=== PATIENT | female | born 1950 | race Caucasian/White ===

== ENCOUNTER 2017-07-27 07:38 | Emergency (ER) | payer OTHER, BC ==
[~2017-07-27 07:38] MED LIST: DICL100G15 TOP; GUAI120015 PO; LIDO700A32 TOP; ONDA4TAB12 PO; SCOP TOP; TRIA80OI TOP
[2017-07-27] MEDS ORDERED: triamcinolone acetonide 40mg/ml inj IM ONE (07:50)
[2017-07-27] MEDS ORDERED: dexamethasone 4mg/ml inj IM ONE (07:50)
[2017-07-27 08:20] VITALS: BP 130/89
== END 2017-07-27 08:28 | disposition home or self-care (01) ==
LOC: ER 07:38
DX: L23.7 Allergic contact dermatitis due to plants, except food (principal); I10 Essential (primary) hypertension; G89.29 Other chronic pain; Z86.73 Personal history of transient ischemic attack (TIA), and cerebral infarction without residual deficits; Z98.890 Other specified postprocedural states; Z88.5 Allergy status to narcotic agent
CPT/HCPCS: 96372; 99284; J1100; J3301

== ENCOUNTER 2017-09-23 14:34 | Emergency (ER) | payer BC, OTHER ==
[~2017-09-23] VITALS: Ht 162.6 cm; Wt 85.9 kg
[2017-09-23 14:40] VITALS: BP 134/71
== END 2017-09-23 15:02 | disposition home or self-care (01) ==
LOC: ER 14:34
DX: S40.022A Contusion of left upper arm, initial encounter (principal); S40.021A Contusion of right upper arm, initial encounter; I10 Essential (primary) hypertension; G89.29 Other chronic pain; Z86.73 Personal history of transient ischemic attack (TIA), and cerebral infarction without residual deficits; Z98.890 Other specified postprocedural states; Z79.899 Other long term (current) drug therapy; Z88.5 Allergy status to narcotic agent; Y08.89XA Assault by other specified means, initial encounter; Y93.89 Activity, other specified; Y92.89 Other specified places as the place of occurrence of the external cause; Y99.8 Other external cause status
CPT/HCPCS: 99285

== ENCOUNTER 2018-01-04 09:22 | Outpatient (CLI) | payer OTHER ==
[2018-01-04 10:49] LABS: CHOL/HDL RATIO 2.2 (0.00-4.99); CHOLESTEROL 108 MG/DL (0-200); HDL CHOLESTEROL 50 MG/DL (35-60); LDL CHOLESTEROL 50 MG/DL (50-100); TRIGLYCERIDES 51 MG/DL (20-135)
== END 2018-01-04 23:59 | disposition home or self-care (01) ==
LOC: LAB 09:22
PROVIDERS: ATTEND Family Medicine
DX: E78.5 Hyperlipidemia, unspecified (principal); I10 Essential (primary) hypertension
CPT/HCPCS: 36415; 80061

== ENCOUNTER 2018-03-09 10:30 | Outpatient (CLI) | payer OTHER, BC | END 2018-03-09 23:59 | disposition home or self-care (01) | LOC: RAD 10:30 | PROVIDERS: ATTEND Anesthesiology | DX: M50.30 Other cervical disc degeneration, unspecified cervical region (principal); M48.02 Spinal stenosis, cervical region; M25.78 Osteophyte, vertebrae; I10 Essential (primary) hypertension | CPT/HCPCS: 72141 ==

== ENCOUNTER 2018-07-19 15:01 | Emergency (ER) | payer OTHER, MEDICARE, BC ==
[~2018-07-19] VITALS: Ht 162.6 cm; Wt 85.0 kg
[2018-07-19] MEDS ORDERED: diazepam 5mg tablet PO ONE (15:20)
[2018-07-19 15:28] LABS: BASOPHILS % (AUTO) 0.4 % (0-1); EOSINOPHILS # (AUTO) 0.2 X10'3 (0-0.9); EOSINOPHILS % (AUTO) 2.4 % (0-6); HEMATOCRIT 37.8 % (35.0-45.0); HEMOGLOBIN 13.2 g/dl (12.0-16.0); LYMPHOCYTES % (AUTO) 22.1 % (21-51); MEAN CORPUSCULAR VOLUME 91.3 FL (78-98); MEAN PLATELET VOLUME 8.6 FL (7.4-10.4); MONOCYTES # (AUTO) 0.5 X10'3 (0-0.9); MONOCYTES % (AUTO) 5.1 % (2-12); NEUTROPHILS # (AUTO) 6.4 X10'3 (1.8-7.7); PLATELET COUNT 218 X10'3 (140-440); RED BLOOD COUNT 4.14 X10'6 (4.20-5.60); RED CELL DISTRIBUTION WIDTH 12.8 % (11.5-14.5); WHITE BLOOD COUNT 9.2 X10'3 (4.5-11.0)
[2018-07-19 15:41] LABS: ALANINE AMINOTRANSFERASE 28 U/L (12-78); ALBUMIN/GLOBULIN RATIO 1.3 (1.1-1.5); ALKALINE PHOSPHATASE 108 IU/L (46-116); ANION GAP 10 (8-16); ASPARTATE AMINO TRANSFERASE 21 U/L (10-37); BILIRUBIN,TOTAL 0.3 MG/DL (0.1-1.0); BLOOD UREA NITROGEN 16 MG/DL (7-18); BUN/CREATININE RATIO 20.5 (6.6-38.0); CALCIUM 9.2 MG/DL (8.5-10.1); CHLORIDE 105 MMOL/L (99-107); CREATININE 0.78 MG/DL (0.40-0.90); GLUCOSE 117 MG/DL (70-104); MAGNESIUM 1.8 MG/DL (1.5-2.4); POTASSIUM 3.5 MMOL/L (3.5-5.1); SODIUM 143 MMOL/L (135-145); TOTAL CARBON DIOXIDE 27.6 MMOL/L (24-32); TOTAL PROTEIN 7.2 G/DL (6.4-8.2); eGFR 74 ML/MIN
--- NOTE | 2018-07-19 15:49 | NUR ---
While in room with patient still, she began having left sided headache. States she has a history of migraines for which she takes excedrine migraine. States she feels "a little foggy, like Im not thinking right". Dr Champion and Dr Yancey in room to discuss plan of care. Pt being taken to mri after being given 10 mg Valium po for claustrophobia.
--- NOTE | 2018-07-19 16:00 | NUR ---
PATIENT TO MRI
--- NOTE | 2018-07-19 16:37 | NUR ---
Patient back from MRI.
[2018-07-19] MEDS ORDERED: ketorolac trometh inj. 60 MG/2 ML VIAL IM ONE (17:10)
[2018-07-19 17:55] VITALS: BP 164/85
== END 2018-07-19 17:56 | disposition home or self-care (01) ==
LOC: ER 15:01
DX: G43.909 Migraine, unspecified, not intractable, without status migrainosus (principal); I10 Essential (primary) hypertension; E78.00 Pure hypercholesterolemia, unspecified; G89.29 Other chronic pain; M54.9 Dorsalgia, unspecified; Z86.73 Personal history of transient ischemic attack (TIA), and cerebral infarction without residual deficits; Z88.6 Allergy status to analgesic agent
CPT/HCPCS: 36415; 70544; 70551; 71045; 80053; 83735; 85025; 93005; 96372; 99284; J1885

== ENCOUNTER 2018-11-30 12:41 | Emergency (ER) | payer OTHER, MEDICARE, BC ==
[~2018-11-30] VITALS: Ht 162.6 cm; Wt 83.6 kg
[2018-11-30 14:32] VITALS: BP 159/93
== END 2018-11-30 14:33 | disposition home or self-care (01) ==
LOC: ER 12:41
DX: S80.01XA Contusion of right knee, initial encounter (principal); M79.671 Pain in right foot; E78.00 Pure hypercholesterolemia, unspecified; I10 Essential (primary) hypertension; G89.29 Other chronic pain; Z86.73 Personal history of transient ischemic attack (TIA), and cerebral infarction without residual deficits; Z98.890 Other specified postprocedural states; Z88.5 Allergy status to narcotic agent; Z79.899 Other long term (current) drug therapy; W01.0XXA Fall on same level from slipping, tripping and stumbling without subsequent striking against object, initial encounter; Y93.89 Activity, other specified; Y92.89 Other specified places as the place of occurrence of the external cause; Y99.8 Other external cause status
CPT/HCPCS: 73564; 73660; 99283

== ENCOUNTER 2019-09-13 07:04 | Emergency (ER) | payer OTHER, BC, MEDICARE ==
[~2019-09-13] VITALS: Ht 162.6 cm; Wt 84.5 kg
[2019-09-13 07:50] LABS: BASOPHILS % (AUTO) 0.5 % (0-1); EOSINOPHILS # (AUTO) 0.3 X10'3 (0-0.9); EOSINOPHILS % (AUTO) 3.5 % (0-6); HEMOGLOBIN 12.4 g/dl (12.0-16.0); LYMPHOCYTES # (AUTO) 2.1 X10'3 (1.1-4.8); LYMPHOCYTES % (AUTO) 25.8 % (21-51); MEAN CORPUSCULAR HEMOGLOBIN 30.6 PG (27.0-31.0); MEAN CORPUSCULAR HGB CONC 33.5 g/dL (33.0-36.5); MEAN CORPUSCULAR VOLUME 91.2 FL (78-98); MEAN PLATELET VOLUME 8.6 FL (7.4-10.4); MONOCYTES # (AUTO) 0.5 X10'3 (0-0.9); NEUTROPHILS # (AUTO) 5.1 X10'3 (1.8-7.7); NEUTROPHILS % (AUTO) 64.2 % (42-75); PLATELET COUNT 201 X10'3 (140-440); RED BLOOD COUNT 4.06 X10'6 (4.20-5.60); RED CELL DISTRIBUTION WIDTH 13.3 % (11.5-14.5)
[2019-09-13 08:04] LABS: D-DIMER 1.22 MG/L FEU (0-0.50); PARTIAL THROMBOPLASTIN TIME 27 SECONDS (22-32)
[2019-09-13 08:05] LABS: ALANINE AMINOTRANSFERASE 23 U/L (12-78); ALBUMIN/GLOBULIN RATIO 1.3 (1.1-1.5); ALKALINE PHOSPHATASE 101 IU/L (46-116); ANION GAP 7 (8-16); ASPARTATE AMINO TRANSFERASE 20 U/L (10-37); BILIRUBIN,TOTAL 0.5 MG/DL (0.1-1.0); BLOOD UREA NITROGEN 16 MG/DL (7-18); BUN/CREATININE RATIO 21.9 (6.6-38.0); CALCIUM 8.9 MG/DL (8.5-10.1); CHLORIDE 107 MMOL/L (99-107); CREATININE 0.73 MG/DL (0.40-0.90); GLUCOSE 117 MG/DL (70-104); POTASSIUM 3.5 MMOL/L (3.5-5.1); SODIUM 143 MMOL/L (135-145); TOTAL CARBON DIOXIDE 29.3 MMOL/L (24-32); TOTAL PROTEIN 7.2 G/DL (6.4-8.2); eGFR 80 ML/MIN
--- NOTE | 2019-09-13 08:10 | NUR ---
VASCULAR AT BEDSIDE
[2019-09-13 09:54] VITALS: BP 172/77
== END 2019-09-13 09:58 | disposition home or self-care (01) ==
LOC: ER 07:05 → EEVIPCON 07:05 → ER 09:58
DX: M25.562 Pain in left knee (principal); E78.00 Pure hypercholesterolemia, unspecified; I10 Essential (primary) hypertension; G89.29 Other chronic pain; R79.1 Abnormal coagulation profile; Z98.890 Other specified postprocedural states; Z86.73 Personal history of transient ischemic attack (TIA), and cerebral infarction without residual deficits; Z88.5 Allergy status to narcotic agent; Z79.899 Other long term (current) drug therapy
CPT/HCPCS: 36415; 73564; 80053; 85025; 85379; 85610; 85730; 93971; 99285

== ENCOUNTER 2019-10-27 12:57 | Outpatient (CLI) | payer OTHER, BC, MEDICARE | END 2019-10-27 23:59 | disposition home or self-care (01) | LOC: RAD 12:57 | PROVIDERS: ATTEND Family Medicine | DX: S83.242A Other tear of medial meniscus, current injury, left knee, initial encounter (principal); S83.282A Other tear of lateral meniscus, current injury, left knee, initial encounter; S83.512A Sprain of anterior cruciate ligament of left knee, initial encounter; M25.462 Effusion, left knee; M71.22 Synovial cyst of popliteal space [Baker], left knee; M17.12 Unilateral primary osteoarthritis, left knee; R60.9 Edema, unspecified; X58.XXXA Exposure to other specified factors, initial encounter; Y93.89 Activity, other specified; Y92.89 Other specified places as the place of occurrence of the external cause; Y99.8 Other external cause status | CPT/HCPCS: 73721 ==

== ENCOUNTER 2020-04-27 07:48 | Day surgery (SDC) | payer BC, MEDICARE ==
[2020-04-20 14:42] LABS: BASOPHILS % (AUTO) 0.3 % (0-1); EOSINOPHILS # (AUTO) 0.2 X10'3 (0-0.9); EOSINOPHILS % (AUTO) 2.7 % (0-6); LYMPHOCYTES # (AUTO) 2.4 X10'3 (1.1-4.8); LYMPHOCYTES % (AUTO) 25.9 % (21-51); MEAN CORPUSCULAR HEMOGLOBIN 31.5 PG (27.0-31.0); MEAN CORPUSCULAR HGB CONC 34.4 g/dL (33.0-36.5); MEAN CORPUSCULAR VOLUME 91.6 FL (78-98); MONOCYTES # (AUTO) 0.6 X10'3 (0-0.9); MONOCYTES % (AUTO) 6.3 % (2-12); NEUTROPHILS # (AUTO) 5.9 X10'3 (1.8-7.7); NEUTROPHILS % (AUTO) 64.8 % (42-75); PRE OP HEMATOCRIT 38.4 % (35.0-45.0); PRE OP HEMOGLOBIN 13.2 g/dL (12.0-16.0); PRE OP PLATELET COUNT 213 X10'3 (140-440); RED BLOOD COUNT 4.19 X10'6 (4.20-5.60); RED CELL DISTRIBUTION WIDTH 13.1 % (11.5-14.5)
[2020-04-20 14:59] LABS: ALBUMIN 4.1 G/DL (3.4-5.0); ALBUMIN/GLOBULIN RATIO 1.2 (1.1-1.5); ALKALINE PHOSPHATASE 117 IU/L (46-116); BLOOD UREA NITROGEN 16 MG/DL (7-18); BUN/CREATININE RATIO 22.5 (6.6-38.0); CALCIUM 9.1 MG/DL (8.5-10.1); CHLORIDE 106 MMOL/L (99-107); CREATININE 0.71 MG/DL (0.40-0.90); PRE OP ALT 23 U/L (30-65); PRE OP ANION GAP 8 (8-16); PRE OP AST 15 U/L (10-37); PRE OP BILIRUB, TOTAL 0.4 MG/DL (0.0-1.0); PRE OP GLUCOSE 118 MG/DL (70-104); PRE OP POTASSIUM 3.7 MMOL/L (3.4-5.1); PRE OP SODIUM 144 MMOL/L (135-145); TOTAL CARBON DIOXIDE 29.8 MMOL/L (24-32); TOTAL PROTEIN 7.6 G/DL (6.4-8.2); eGFR 82 ML/MIN
[2020-04-27] VITALS (10 sets, daily range): BP systolic 152–199; BP diastolic 73–101
[~2020-04-27] VITALS: Ht 162.6 cm; Wt 83.2 kg
[~2020-04-27 07:48] MED LIST changes: +ASPI81TA52 PO; +ATOR40TA PO; +BUPIVAcaine 0.5% inj/PF 60 ML ONE; +CITA20TA19 PO; -DICL100G15 TOP; -GUAI120015 PO; +HYDR-4353 PO; +HYDR12.55 PO; -LIDO700A32 TOP; +LIDO700A47 TOP; +LIDOcaine 1% 30ml preserv. free vial ONE; +LIDOcaine 1% w/epiNEPHrine 1:200,000 30ml vial ONE; -ONDA4TAB12 PO; -SCOP TOP; +TERA1CAP4 PO; +TRAZ-256 PO; -TRIA80OI TOP; +ceFAZolin 2gm in dextrose, iso 50 ML IV ONE; +famotidine 20mg tablet PO ONE; +ringers solution, lacted 1,000 ML IV SCH
[2020-04-27] MEDS ORDERED: BUPIVAcaine 0.5% inj/PF 30 ML ONE (09:02)
[2020-04-27] MEDS ORDERED: sevoflurane 250ml liquid IH ONE (09:26)
[2020-04-27] MEDS ORDERED: midazolam 2 mg/2 ml injection ONE (09:29)
[2020-04-27] MEDS ORDERED: fentaNYL/PF 50MCG/1 ML 2ML syringe ONE (09:29)
[2020-04-27] MEDS ORDERED: ondansetron/PF 4mg/2ml inj ONE (09:42)
[2020-04-27] MEDS ORDERED: LIDOcaine 2% (20mg/ml) 5ml vial ONE (09:42)
[2020-04-27] MEDS ORDERED: propofol inj 20 ML IV ONE (09:42)
[2020-04-27] MEDS ORDERED: dexamethasone sod phosphate 4mg/ml inj. ONE (09:42)
[2020-04-27] MEDS ORDERED: proCHLORperazine 10 MG/2 ml inj IV PRN (10:05)
[2020-04-27] MEDS ORDERED: meperidine/PF 25mg/ml syringe IV PRN (10:05)
[2020-04-27] MEDS ORDERED: ondansetron/PF 4mg/2ml inj IV PRN (10:05)
[2020-04-27] MEDS ORDERED: HYDROmorphone/PF 0.2 MG/ML SYRINGE IV PRN ×2 (10:05)
[2020-04-27] MEDS ORDERED: ringers solution, lacted 1,000 ML IV SCH (10:05)
[2020-04-27] MEDS ORDERED: fentaNYL/PF 50MCG/1 ML 2ML syringe IV PRN ×2 (10:05)
[2020-04-27] MEDS ORDERED: acetaminophen 1,000mg/100ml IV 100 ML IV PRN (10:05)
--- NOTE | 2020-04-27 10:38 | NUR ---
FROM OR ON [facility] WITH DR. ATKINSON AT SIDE. NO RESP DISTRESS. VS-BP 199/95 MED IMMEDIATELY WITH TRANDATE. NO PAIN, IV PATENT TO RT WRIST. KNEE DRESSING IS CHRISTI WRAP OVER GAUZE AND IS CDI. PEDAL PULSE IS PALPABLE AND STRONG. TOES MOVE WELL.
[2020-04-27] MEDS ORDERED: hydrALAZINE 20mg/ml inj. IV PRN (10:40)
[2020-04-27] MEDS ORDERED: labetalol 20mg/4ml (5mg/ml) syringe IV PRN (10:40)
--- NOTE | 2020-04-27 11:08 | NUR ---
EXCELLENT RESULTS FROM LABETALOL. O2 OFF NOW. ENC CDB. NO PAIN, EXCELLENT PULSE. DRESSING CONT CDI.
--- NOTE | 2020-04-27 12:08 | NUR ---
IV OUT. VOIDED IN BR. DOES EXCELLENT WITH THE WALKER. DSG CONT CDI. NO PAIN.
--- NOTE | 2020-04-27 12:13 | NUR ---
DC TO HOME WITH DRIVING. ALL QUESTIONS ANSWERED STATES UNDERSTANDS. KNEE DSG CDI, PULSE PALPABLE. WHEELED TO LOBBY AND PLACED INTO CAR WITHOUT INCIDENT.
== END 2020-04-27 12:13 | disposition home or self-care (01) ==
LOC: PAS 07:48
PROVIDERS: ATTEND Orthopaedic Surgery
DX: S83.232A Complex tear of medial meniscus, current injury, left knee, initial encounter (principal); S83.282A Other tear of lateral meniscus, current injury, left knee, initial encounter; M94.262 Chondromalacia, left knee; Z20.828 Contact with and (suspected) exposure to other viral communicable diseases; I10 Essential (primary) hypertension; G43.909 Migraine, unspecified, not intractable, without status migrainosus; M17.12 Unilateral primary osteoarthritis, left knee; Z86.73 Personal history of transient ischemic attack (TIA), and cerebral infarction without residual deficits; Z88.5 Allergy status to narcotic agent; Z98.890 Other specified postprocedural states; Z96.643 Presence of artificial hip joint, bilateral; Z96.653 Presence of artificial knee joint, bilateral; Z79.899 Other long term (current) drug therapy; X58.XXXA Exposure to other specified factors, initial encounter; Y93.89 Activity, other specified; Y92.89 Other specified places as the place of occurrence of the external cause; Y99.8 Other external cause status
CPT/HCPCS: 29880; 36415; 80053; 82948; 85025; 87635; J1100; J2001; J2250; J2405; J2704; J3010; A4215; A4618; A6449; J3490; J7120

== ENCOUNTER 2020-06-14 12:34 | Outpatient (CLI) | payer BC, MEDICARE ==
[~2020-06-14 12:34] MED LIST changes: -BUPIVAcaine 0.5% inj/PF 60 ML ONE; -LIDOcaine 1% 30ml preserv. free vial ONE; -LIDOcaine 1% w/epiNEPHrine 1:200,000 30ml vial ONE; -ceFAZolin 2gm in dextrose, iso 50 ML IV ONE; -famotidine 20mg tablet PO ONE; -ringers solution, lacted 1,000 ML IV SCH
== END 2020-06-14 23:59 | disposition home or self-care (01) ==
LOC: RAD 12:34
PROVIDERS: ATTEND Family Medicine
DX: R05 Cough (principal); J98.4 Other disorders of lung; M47.819 Spondylosis without myelopathy or radiculopathy, site unspecified
CPT/HCPCS: 71046

== ENCOUNTER 2020-06-27 15:44 | Outpatient (CLI) | payer BC, MEDICARE | END 2020-06-27 23:59 | disposition home or self-care (01) | LOC: RT 15:44 | PROVIDERS: ATTEND Family Medicine | DX: J98.4 Other disorders of lung (principal) | CPT/HCPCS: 94010 ==

== ENCOUNTER 2020-12-21 08:15 | Emergency (ER) | payer BC, MEDICARE ==
[~2020-12-21] VITALS: Ht 162.6 cm; Wt 81.0 kg
[2020-12-21 08:17] VITALS: BP 181/78
[2020-12-21] MEDS ORDERED: GENT5DRO4 LEFTEYE (08:43)
[2020-12-21] MEDS ORDERED: naphazoline/pheniramine eye 1 DROP BOTTLE EACHEYE PRN (08:45)
== END 2020-12-21 09:00 | disposition home or self-care (01) ==
LOC: ER 08:16 → EEVIPCON 08:16 → ER 09:00
DX: H10.32 Unspecified acute conjunctivitis, left eye (principal); Z88.5 Allergy status to narcotic agent; Z79.899 Other long term (current) drug therapy
CPT/HCPCS: 99283

== ENCOUNTER 2021-01-09 11:27 | Emergency (ER) | payer BC, MEDICARE ==
[~2021-01-09] VITALS: Ht 162.6 cm; Wt 80.9 kg
[~2021-01-09 11:27] MED LIST changes: +GENT5DRO4 LEFTEYE
[2021-01-09] MEDS ORDERED: sucralfate 1gm/10ml UD suspension PO STA (11:56)
[2021-01-09] MEDS ORDERED: LIDOcaine Viscous 15ml cup MM ONE (12:00)
[2021-01-09] MEDS ORDERED: normal saline 1000ML IV soln IVB ONE (12:00)
[2021-01-09] MEDS ORDERED: famotidine/PF 10 mg/ml inj IV ONE (12:00)
[2021-01-09] MEDS ORDERED: mag hydrox/Alum hydrox/simeth 30ml oral suspension PO ONE (12:00)
[2021-01-09] MEDS ORDERED: sucralfate 1 gm tablet PO STA (12:15)
[2021-01-09 12:33] LABS: BASOPHILS % (AUTO) 0.3 % (0-1); EOSINOPHILS # (AUTO) 0.1 X10'3 (0-0.9); EOSINOPHILS % (AUTO) 0.6 % (0-6); HEMATOCRIT 38.8 % (35.0-45.0); HEMOGLOBIN 12.9 g/dl (12.0-16.0); LYMPHOCYTES # (AUTO) 2.1 X10'3 (1.1-4.8); LYMPHOCYTES % (AUTO) 13.7 % (21-51); MEAN CORPUSCULAR HEMOGLOBIN 31.1 PG (27.0-31.0); MEAN CORPUSCULAR HGB CONC 33.3 g/dL (33.0-36.5); MEAN CORPUSCULAR VOLUME 93.4 FL (78-98); MEAN PLATELET VOLUME 8.6 FL (7.4-10.4); MONOCYTES # (AUTO) 0.7 X10'3 (0-0.9); MONOCYTES % (AUTO) 4.7 % (2-12); NEUTROPHILS # (AUTO) 12.3 X10'3 (1.8-7.7); NEUTROPHILS % (AUTO) 80.7 % (42-75); PLATELET COUNT 211 X10'3 (140-440); RED BLOOD COUNT 4.16 X10'6 (4.20-5.60); RED CELL DISTRIBUTION WIDTH 13.7 % (11.5-14.5); WHITE BLOOD COUNT 15.3 X10'3 (4.5-11.0)
[2021-01-09 12:58] LABS: ALANINE AMINOTRANSFERASE 31 U/L (12-78); ALBUMIN 3.8 G/DL (3.4-5.0); ALBUMIN/GLOBULIN RATIO 1.3 (1.1-1.5); ALKALINE PHOSPHATASE 78 IU/L (46-116); ANION GAP 8 (8-16); ASPARTATE AMINO TRANSFERASE 13 U/L (10-37); BILIRUBIN,TOTAL 0.8 MG/DL (0.1-1.0); BLOOD UREA NITROGEN 19 MG/DL (7-18); BUN/CREATININE RATIO 21.3 (6.6-38.0); CALCIUM 8.4 MG/DL (8.5-10.1); CHLORIDE 106 MMOL/L (99-107); CREATININE 0.89 MG/DL (0.40-0.90); GLUCOSE 143 MG/DL (70-104); POTASSIUM 3.3 MMOL/L (3.5-5.1); SODIUM 143 MMOL/L (135-145); TOTAL CARBON DIOXIDE 28.8 MMOL/L (24-32); TOTAL PROTEIN 6.8 G/DL (6.4-8.2); eGFR 63 ML/MIN
[2021-01-09 13:04] LABS: LIPASE 100 U/L (73-393)
[2021-01-09 14:14] VITALS: BP 153/68
== END 2021-01-09 14:08 | disposition home or self-care (01) ==
LOC: ER 11:27 → EEVIPCON 11:27 → ER 14:08
DX: B34.9 Viral infection, unspecified (principal); Z20.822 Contact with and (suspected) exposure to COVID-19; R53.83 Other fatigue; R42 Dizziness and giddiness; R53.1 Weakness; R06.02 Shortness of breath; E78.00 Pure hypercholesterolemia, unspecified; I10 Essential (primary) hypertension; G89.29 Other chronic pain; Z86.73 Personal history of transient ischemic attack (TIA), and cerebral infarction without residual deficits; Z98.890 Other specified postprocedural states; Z88.5 Allergy status to narcotic agent; Z79.82 Long term (current) use of aspirin; Z79.899 Other long term (current) drug therapy
CPT/HCPCS: 36415; 71045; 74176; 80053; 83690; 84484; 85025; 87635; 96361; 96374; 99285; C9803; J3490; J7030

== ENCOUNTER 2021-04-15 14:12 | Outpatient (CLI) | payer BC, MEDICARE | END 2021-04-15 23:59 | disposition home or self-care (01) | LOC: VAS 14:12 | PROVIDERS: ATTEND Internal Medicine Interventional Cardiology | DX: I34.0 Nonrheumatic mitral (valve) insufficiency (principal); I65.21 Occlusion and stenosis of right carotid artery; Z86.73 Personal history of transient ischemic attack (TIA), and cerebral infarction without residual deficits | CPT/HCPCS: 93306; 93880 ==

== ENCOUNTER 2021-06-25 05:57 | Day surgery (SDC) | payer BC, MEDICARE ==
[2021-06-19 13:25] LABS: BASOPHILS % (AUTO) 0.3 % (0-1); EOSINOPHILS # (AUTO) 0.1 X10'3 (0-0.9); EOSINOPHILS % (AUTO) 1.9 % (0-6); LYMPHOCYTES % (AUTO) 25.5 % (21-51); MEAN CORPUSCULAR HGB CONC 33.9 g/dL (33.0-36.5); MEAN CORPUSCULAR VOLUME 91.3 FL (78-98); MEAN PLATELET VOLUME 9.3 FL (7.4-10.4); MONOCYTES # (AUTO) 0.5 X10'3 (0-0.9); MONOCYTES % (AUTO) 5.9 % (2-12); NEUTROPHILS # (AUTO) 5.1 X10'3 (1.8-7.7); NEUTROPHILS % (AUTO) 66.4 % (42-75); PRE OP HEMATOCRIT 37.9 % (35.0-45.0); PRE OP HEMOGLOBIN 12.8 g/dL (12.0-16.0); PRE OP PLATELET COUNT 197 X10'3 (140-440); RED BLOOD COUNT 4.15 X10'6 (4.20-5.60); RED CELL DISTRIBUTION WIDTH 13.2 % (11.5-14.5)
[2021-06-19 13:25] LABS: CLARITY,URINE CLEAR (Clear); COLOR,URINE YELLOW (Yellow); GLUCOSE, URINE NEGATIVE (Neg); KETONES,URINE NEGATIVE (Neg); LEUKOCYTE ESTERASE ,URINE NEGATIVE (Neg); NITRITES, URINE NEGATIVE (Neg); OCCULT BLOOD,URINE NEGATIVE (Neg); PROTEIN,URINE NEGATIVE (Neg); UROBILINOGEN,URINE 0.2 E.U/dL (0.2-1.0)
[2021-06-19 13:35] LABS: UA COLLECTION TYPE CLN CATCH MIDSTREAM
[2021-06-19 14:18] LABS: ALBUMIN 4.3 G/DL (3.4-5.0); ALBUMIN/GLOBULIN RATIO 1.5 (1.1-1.5); ALKALINE PHOSPHATASE 95 IU/L (46-116); BLOOD UREA NITROGEN 13 MG/DL (7-18); BUN/CREATININE RATIO 24.1 (6.6-38.0); CHLORIDE 105 MMOL/L (99-107); CREATININE 0.54 MG/DL (0.40-0.90); PRE OP ALT 23 U/L (30-65); PRE OP ANION GAP 9 (8-16); PRE OP AST 18 U/L (10-37); PRE OP BILIRUB, TOTAL 0.7 MG/DL (0.0-1.0); PRE OP GLUCOSE 90 MG/DL (70-104); PRE OP SODIUM 144 MMOL/L (135-145); TOTAL CARBON DIOXIDE 29.9 MMOL/L (24-32); TOTAL PROTEIN 7.2 G/DL (6.4-8.2); eGFR > 90 ML/MIN
[2021-06-19 14:28] LABS: PRE OP POTASSIUM 3.3 MMOL/L (3.4-5.1)
[~2021-06-25] VITALS: Ht 162.6 cm; Wt 76.6 kg
[2021-06-25] VITALS (30 sets, daily range): BP systolic 109–175; BP diastolic 59–83
[~2021-06-25 05:57] MED LIST changes: -GENT5DRO4 LEFTEYE; +VANCOMYCIN 1,500MG inj. 1,500 MG in dextrose 5% water 500ml 300 ML IV ONE; +acetaminophen 325mg tablet PO ONE; +cefazolin/dext.iso 2gm/50ml IV ONE; +celeCOXIB 100mg capsule PO ONE; +famotidine 20mg tablet PO ONE; +gabapentin 300mg capsule PO ONE; +metoclopramide 5 mg/ml inj IV ONE; +oxyCODONE SR 10mg (sust. release) tab -2 tabs (20mg) PO ONE; +tranexamic acid inj. 1,000 MG in 0.7% saline 100 ML PMX IV ONE
[2021-06-25] MEDS: ringers solution, lacted 1,000 ML IV SCH ×2 (06:40→11:59)
[2021-06-25] MEDS ORDERED: acetaminophen 325mg tablet PO PRN (06:45)
[2021-06-25] MEDS ORDERED: ondansetron/PF 4mg/2ml inj IV PRN ×2 (06:45→08:05)
[2021-06-25] MEDS ORDERED: HYDROmorphone 1 mg/ml syringe IV PRN (06:45)
[2021-06-25] MEDS ORDERED: oxyCODONE/APAP 10/325mg tablet PO PRN (06:45)
[2021-06-25] MEDS ORDERED: diphenhydrAMINE 25mg capsule PO PRN ×2 (06:45)
[2021-06-25] MEDS ORDERED: bisacodyl 10mg suppository rectal RC PRN (06:45)
[2021-06-25] MEDS ORDERED: HYDROmorphone inj. 0.5 MG/0.5 ML DISP.SYRIN IV PRN (06:45)
[2021-06-25] MEDS ORDERED: magnesium hydroxide 30ml (MOM) UD suspension PO PRN (06:45)
[2021-06-25] MEDS ORDERED: cloNIDine hcl/PF 100mcg/ml inj ONE (06:46)
[2021-06-25] MEDS ORDERED: ROPIVAcaine 0.5% (5mg/ml) 30ml vial ONE ×2 (06:46→08:11)
[2021-06-25] MEDS ORDERED: ketorolac trometh. 30mg/ml inj. ONE (06:46)
[2021-06-25] MEDS ORDERED: epiNEPHrine 1 mg/ml inj ONE (06:46)
[2021-06-25] MEDS ORDERED: vancomycin 1,000mg inj ONE (06:46)
[2021-06-25 06:56] LABS: ISTAT CREATININE 0.7 mg/dL (0.6-1.1); ISTAT HGB 12.2 g/dl (12.0-16.0); ISTAT IONIZED CALCIUM 1.21 mmol/L (1.03-1.32); ISTAT K 3.6 mmol/L (3.5-5.1); POC BUN/CREATININE RATIO 22.9 (6.6-38.0)
[2021-06-25] MEDS ORDERED: BUPIVAcaine/dex-water/PF 7.5 mg/ml 2ml ampul ONE (07:10)
[2021-06-25] MEDS ORDERED: fentaNYL/PF 50MCG/1 ML 2ML syringe ONE ×2 (07:10→07:41)
[2021-06-25] MEDS ORDERED: MIDAZolam 1 MG/ML 5ML VIAL ONE (07:10)
[2021-06-25] MEDS ORDERED: sevoflurane 250ml liquid IH ONE (07:10)
[2021-06-25] MEDS ORDERED: meperidine/PF 25mg/ml syringe IV PRN ×2 (08:05)
[2021-06-25] MEDS ORDERED: ringers solution, lacted 1,000 ML IV SCH (08:05)
[2021-06-25] MEDS ORDERED: HYDROmorphone/PF 0.2 MG/ML SYRINGE IV PRN ×2 (08:05)
[2021-06-25] MEDS ORDERED: ROPIVAcaine 0.2% (10 MG/5 ML) BOLUS INJECTION ADDCANAL PRN (08:05)
[2021-06-25] MEDS ORDERED: propofol inj 20 ML IV ONE (08:12)
[2021-06-25] MEDS ORDERED: LIDOcaine 1%/PF 5ML 10 MG/ML VIAL ONE (08:12)
[2021-06-25] MEDS ORDERED: diphenhydrAMINE 50 mg/ml inj ONE (08:12)
[2021-06-25] MEDS ORDERED: dexamethasone sod phosphate 4mg/ml inj. ONE (08:12)
[2021-06-25] MEDS ORDERED: ondansetron/PF 4mg/2ml inj ONE (08:12)
[2021-06-25] MEDS ORDERED: ROPIVAcaine 0.5% (5mg/ml) 30ml vial IJ ONE (08:18)
[2021-06-25] MEDS ORDERED: epiNEPHrine 1 mg/ml inj IM ONE (08:20)
[2021-06-25] MEDS ORDERED: ketorolac trometh. 30mg/ml inj. IM ONE (08:21)
[2021-06-25] MEDS ORDERED: cloNIDine hcl/PF 100mcg/ml inj IJ ONE (08:21)
[2021-06-25] MEDS ORDERED: ketamine 50mg/5ml syringe ONE (08:22)
--- NOTE | 2021-06-25 08:50 | NUR ---
Received from OR via BED, accompanied by Anesthesiologist DR FERNANDO and report given by Anesthesiologist AND STOCKKEEPER. PT VERY DROWSY, NO S/S OF DISTERSS/DISCOMFORT. LEFT KNEE W/LEG WRAP, PORTIA DRAIN, DRSG CDI, POWDER PACK AND ADB CATHETER INTACT.
--- NOTE | 2021-06-25 10:28 | NUR ---
received report from GAIL Mejia. waiting for room to be cleaned and patient arrival.
[2021-06-25] MEDS: ROPIVAcaine 0.2%/PF PUMP/bolus 545 ML ADDCANAL SCH (10:46)
--- NOTE | 2021-06-25 11:50 | NUR ---
Report called to receiving nurse. Transferred via [] Belongings []. Special Issues communicated to receiving nurse.
--- NOTE | 2021-06-25 11:50 | NUR ---
PT C/O LEFT KNEE PAIN, 25 MG DEMEROL GIVEN. Report called to receiving nurse. Transferred via BED BY NAVEEN JUNGs, RECEIVING RN CALLED AND NOTIFIED OF PTS ARRIVAL. Special Issues communicated to receiving nurse. YES. Addendum: 06/25/21 at 1157 by Jackie Pantoja RN Amended: Links added.
--- NOTE | 2021-06-25 11:51 | NUR ---
Patient arrived to floor. VSS. patient very sleepy but arousable. visitor at bedside. no complaints at this time.
[2021-06-25] MEDS: potassium cl 20mEq in 1/2 NS 1,000 ML IV SCH ×3 (11:59→19:17)
[2021-06-25] MEDS ORDERED: tranexamic acid 1gm/0.7% sal. 100 ML IV ONE (12:00)
[2021-06-25] MEDS: multivitamins, therapeutics tablet PO SCH (15:34)
[2021-06-25] MEDS: HYDROchlorothiazide 12.5mg capsule PO SCH (15:34)
[2021-06-25] MEDS: atorvastatin 20mg tablet PO SCH (15:35)
[2021-06-25] MEDS: aspirin 81mg, enteric-coated 1 TAB TABLET.DR PO SCH (15:35)
[2021-06-25] MEDS: gabapentin 300mg capsule PO SCH ×2 (15:36→22:25)
[2021-06-25] MEDS: oxyCODONE/APAP 10/325mg tablet PO PRN (15:36)
[2021-06-25] MEDS: citalopram 20mg tablet PO SCH (15:37)
[2021-06-25] MEDS: ceFAZolin/D5W- 1GM premix 50 ML IV SCH ×2 (15:40→23:41)
--- NOTE | 2021-06-25 17:55 | NUR ---
Student documentation: I have reviewed all interventions, assessments performed and documented by SN Solomon. Student Medication Administration: For this medication-pass time frame, all medication were reviewed, dispensed, administered and documented per hospital policy by SN Solomon.
--- NOTE | 2021-06-25 18:23 | NUR ---
Problems reprioritized. Patient report given, questions answered & plan of care reviewed with Nettie.
[2021-06-25] MEDS: ascorbic acid 500mg tablet PO SCH (19:17)
[2021-06-25] MEDS ORDERED: VANCOMYCIN 1GM/200ML IVPB 200 ML IV SCH (20:00)
[2021-06-25] MEDS ORDERED: traZODone 50mg tablet PO SCH (21:00)
[2021-06-25] MEDS ORDERED: sennosides 8.6mg tablet PO SCH (21:00)
[2021-06-25] MEDS ORDERED: terazosin 5mg capsule PO SCH (21:00)
--- NOTE | 2021-06-25 23:57 | NUR ---
Student Medication Administration: For this medication-pass time frame, all medication were reviewed, dispensed, administered and documented per hospital policy by Anastasia [facility].
[2021-06-26] MEDS: oxyCODONE/APAP 10/325mg tablet PO PRN ×2 (05:25→17:01)
--- NOTE | 2021-06-26 06:10 | NUR ---
Problems reprioritized. Patient report given, questions answered & plan of care reviewed with Lurdes REYNOLDS.
[2021-06-26 06:39] LABS: BASOPHILS % (AUTO) 0.1 % (0-1); EOSINOPHILS % (AUTO) 0.2 % (0-6); HEMATOCRIT 29.7 % (35.0-45.0); LYMPHOCYTES # (AUTO) 1.6 X10'3 (1.1-4.8); LYMPHOCYTES % (AUTO) 13.3 % (21-51); MEAN CORPUSCULAR HEMOGLOBIN 30.9 PG (27.0-31.0); MEAN CORPUSCULAR HGB CONC 33.7 g/dL (33.0-36.5); MEAN CORPUSCULAR VOLUME 91.9 FL (78-98); MEAN PLATELET VOLUME 8.7 FL (7.4-10.4); MONOCYTES # (AUTO) 0.8 X10'3 (0-0.9); MONOCYTES % (AUTO) 6.4 % (2-12); NEUTROPHILS # (AUTO) 9.9 X10'3 (1.8-7.7); PLATELET COUNT 182 X10'3 (140-440); RED BLOOD COUNT 3.24 X10'6 (4.20-5.60); RED CELL DISTRIBUTION WIDTH 13.2 % (11.5-14.5); WHITE BLOOD COUNT 12.3 X10'3 (4.5-11.0)
[2021-06-26] MEDS: ascorbic acid 500mg tablet PO SCH (07:19)
[2021-06-26] MEDS: atorvastatin 20mg tablet PO SCH (07:19)
[2021-06-26] MEDS: multivitamins, therapeutics tablet PO SCH (07:19)
[2021-06-26] MEDS: gabapentin 300mg capsule PO SCH ×2 (07:20→13:55)
[2021-06-26] MEDS: aspirin 81mg, enteric-coated 1 TAB TABLET.DR PO SCH (07:20)
[2021-06-26] MEDS: citalopram 20mg tablet PO SCH (07:20)
[2021-06-26] MEDS: HYDROchlorothiazide 12.5mg capsule PO SCH (07:23)
[2021-06-26] MEDS: potassium cl 20mEq in 1/2 NS 1,000 ML IV SCH ×2 (07:24→14:45)
[2021-06-26 07:30] VITALS: BP 129/78
[2021-06-26 08:04] LABS: ANION GAP 6 (8-16); CHLORIDE 109 MMOL/L (99-107); SODIUM 143 MMOL/L (135-145); TOTAL CARBON DIOXIDE 27.9 MMOL/L (24-32)
[2021-06-26 08:39] VITALS: BP 135/70
--- NOTE | 2021-06-26 09:15 | NUR ---
Patient discharged all paperwork and instructions and education given and reviewed with patient, all questions answered. Patient is waiting for her ride to get off work around 1600 and can be taken home.
[2021-06-26 11:29] VITALS: BP 138/55
--- NOTE | 2021-06-26 15:29 | NUR ---
Patient has chronic pain at 6/10. patient pain goal is to not be over chronic pain level of 6/10. Addendum: 06/26/21 at 1534 by Paulina KAUFMAN Amended: Links added.
[2021-06-26] MEDS: ROPIVAcaine 0.2%/PF PUMP/bolus 545 ML ADDCANAL SCH (15:53)
--- NOTE | 2021-06-26 17:06 | NUR ---
Patient stable and appropriate for discharge home. IV removed, all belongings taken from room. All discharge instructions and education given and reviewed with patient, all questions answered. New OnQ given to patient and extra dex dressing was given to patient.
[2021-06-26] MEDS ORDERED: celeCOXIB 100mg capsule PO SCH (20:00)
== END 2021-06-26 17:10 | disposition home or self-care (01) ==
LOC: PAS 05:57 → SUR 3N 06:45 → PAS 06-26 17:10
PROVIDERS: ATTEND Orthopaedic Surgery
DX: M17.12 Unilateral primary osteoarthritis, left knee (principal); I10 Essential (primary) hypertension; F32.A Depression, unspecified; G89.29 Other chronic pain; G89.18 Other acute postprocedural pain; Z86.73 Personal history of transient ischemic attack (TIA), and cerebral infarction without residual deficits; Z72.89 Other problems related to lifestyle; Z79.899 Other long term (current) drug therapy; Z79.82 Long term (current) use of aspirin; Z88.5 Allergy status to narcotic agent; Z96.643 Presence of artificial hip joint, bilateral; Z98.49 Cataract extraction status, unspecified eye; Z85.828 Personal history of other malignant neoplasm of skin; Z88.8 Allergy status to other drugs, medicaments and biological substances; Z98.890 Other specified postprocedural states; Z80.3 Family history of malignant neoplasm of breast; Z80.1 Family history of malignant neoplasm of trachea, bronchus and lung
CPT/HCPCS: 27447; 36415; 64448; 73560; 76942; 80047; 80051; 80053; 81003; 85025; 86885; 86900; 86901; 87081; 93005; 97110; 97116; 97161; 97530; C1713; C1776; J0171; J0690; J0735; J1100; J1200; J1885; J2175; J2250; J2405; J2704; J2795; J3010; J3370; J3480; J3490; J7030; J7060; J7120; U0003; U0005; Z7506; Z7508; Z7512; A4215; A7000; G0378; J7040

== ENCOUNTER 2022-02-21 07:47 | Day surgery (SDC) | payer BC, MEDICARE ==
[~2022-02-21] VITALS: Ht 162.6 cm; Wt 78.6 kg
[~2022-02-21 07:47] MED LIST changes: -VANCOMYCIN 1,500MG inj. 1,500 MG in dextrose 5% water 500ml 300 ML IV ONE; -acetaminophen 325mg tablet PO ONE; -cefazolin/dext.iso 2gm/50ml IV ONE; -celeCOXIB 100mg capsule PO ONE; -famotidine 20mg tablet PO ONE; -gabapentin 300mg capsule PO ONE; -metoclopramide 5 mg/ml inj IV ONE; -oxyCODONE SR 10mg (sust. release) tab -2 tabs (20mg) PO ONE; -tranexamic acid inj. 1,000 MG in 0.7% saline 100 ML PMX IV ONE
[2022-02-21] MEDS ORDERED: LIDOcaine 1% 30ml preserv. free vial SQ STA (08:28)
[2022-02-21] MEDS ORDERED: TRAM50TA2 PO (08:34)
[2022-02-21] MEDS ORDERED: VALA500T41 PO (08:34)
[2022-02-21] MEDS ORDERED: GABA300C PO (08:34)
[2022-02-21 08:36] VITALS: BP 162/92
[2022-02-21 10:10] VITALS: BP 146/91
== END 2022-02-21 10:20 | disposition home or self-care (01) ==
LOC: SSTAY O 07:47
PROVIDERS: ATTEND Radiology Vascular & Interventional Radiology
DX: R59.0 Localized enlarged lymph nodes (principal); I10 Essential (primary) hypertension; E78.00 Pure hypercholesterolemia, unspecified; Z98.49 Cataract extraction status, unspecified eye; Z72.89 Other problems related to lifestyle; Z86.73 Personal history of transient ischemic attack (TIA), and cerebral infarction without residual deficits; Z88.6 Allergy status to analgesic agent; Z79.899 Other long term (current) drug therapy; Z98.890 Other specified postprocedural states
CPT/HCPCS: 38505; 76942

== ENCOUNTER 2022-04-28 10:04 | Outpatient (CLI) | payer BC, MEDICARE ==
[~2022-04-28 10:04] MED LIST changes: +GABA300C PO; -HYDR-4353 PO; -HYDR12.55 PO; -LIDO700A47 TOP; -TERA1CAP4 PO; +TRAM50TA2 PO; +VALA500T41 PO
== END 2022-04-28 23:59 | disposition home or self-care (01) ==
LOC: RAD 10:04
PROVIDERS: ATTEND Physical Medicine & Rehabilitation
DX: M47.812 Spondylosis without myelopathy or radiculopathy, cervical region (principal); M48.02 Spinal stenosis, cervical region; M50.21 Other cervical disc displacement, high cervical region; M50.223 Other cervical disc displacement at C6-C7 level; M25.78 Osteophyte, vertebrae; M50.30 Other cervical disc degeneration, unspecified cervical region; M62.838 Other muscle spasm
CPT/HCPCS: 72141

== ENCOUNTER 2022-05-05 13:13 | Emergency (ER) | payer BC, MEDICARE ==
[~2022-05-05] VITALS: Ht 162.6 cm; Wt 75.0 kg
[2022-05-05 13:16] VITALS: BP 171/85
[2022-05-05] MEDS ORDERED: oxyCODONE/APAP 5-325mg tablet PO ONE ×2 (13:20→14:32)
[2022-05-05] MEDS ORDERED: OXYC-145 PO (14:02)
== END 2022-05-05 14:38 | disposition home or self-care (01) ==
LOC: ER 13:13
DX: S50.312A Abrasion of left elbow, initial encounter (principal); S80.212A Abrasion, left knee, initial encounter; S80.211A Abrasion, right knee, initial encounter; W18.39XA Other fall on same level, initial encounter; Y93.89 Activity, other specified; Y92.89 Other specified places as the place of occurrence of the external cause; Y99.8 Other external cause status
CPT/HCPCS: 29125; 73110; 73560; 99284; A4565; A6446; A6449

== ENCOUNTER 2022-09-08 07:58 | Emergency (ER) | payer BC, MEDICARE ==
[~2022-09-08] VITALS: Ht 160 cm; Wt 65.0 kg
[~2022-09-08 07:58] MED LIST changes: +OXYC-145 PO
[2022-09-08] MEDS ORDERED: normal saline 1000ML IV soln IVB ONE (08:10)
[2022-09-08 09:10] LABS: BASOPHILS % (AUTO) 0.3 % (0-1); EOSINOPHILS % (AUTO) 0.2 % (0-6); HEMATOCRIT 36.9 % (35.0-45.0); HEMOGLOBIN 12.7 g/dl (12.0-16.0); LYMPHOCYTES # (AUTO) 0.1 X10'3 (1.1-4.8); MEAN CORPUSCULAR HEMOGLOBIN 31.7 PG (27.0-31.0); MEAN CORPUSCULAR HGB CONC 34.3 g/dL (33.0-36.5); MEAN CORPUSCULAR VOLUME 92.2 FL (78-98); MEAN PLATELET VOLUME 8.7 FL (7.4-10.4); MONOCYTES # (AUTO) 0.5 X10'3 (0-0.9); MONOCYTES % (AUTO) 4.3 % (2-12); NEUTROPHILS # (AUTO) 10.1 X10'3 (1.8-7.7); NEUTROPHILS % (AUTO) 94.2 % (42-75); PLATELET COUNT 244 X10'3 (140-440); RED CELL DISTRIBUTION WIDTH 13.6 % (11.5-14.5); WHITE BLOOD COUNT 10.7 X10'3 (4.5-11.0)
[2022-09-08 09:33] LABS: ALANINE AMINOTRANSFERASE 14 U/L (12-78); ALBUMIN 3.9 G/DL (3.4-5.0); ALKALINE PHOSPHATASE 94 IU/L (46-116); ANION GAP 13 (8-16); ASPARTATE AMINO TRANSFERASE 21 U/L (10-37); BILIRUBIN,TOTAL 1.1 MG/DL (0.1-1.0); BLOOD UREA NITROGEN 17 MG/DL (7-18); BUN/CREATININE RATIO 15.2 (10.0-20.0); CALCIUM 9.5 MG/DL (8.5-10.1); CHLORIDE 101 MMOL/L (99-107); CREATININE 1.12 MG/DL (0.40-0.90); GLUCOSE 137 MG/DL (70-104); SODIUM 142 MMOL/L (135-145); TOTAL CARBON DIOXIDE 27.6 MMOL/L (24-32); TOTAL PROTEIN 7.9 G/DL (6.4-8.2); eGFR 48 ML/MIN
[2022-09-08 09:39] LABS: POTASSIUM 2.7 MMOL/L (3.5-5.1)
[2022-09-08] MEDS ORDERED: POTASSIUM BICARB 20meq eff tab 20 MEQ TABLET.EFF PO STA (09:40)
[2022-09-08] MEDS ORDERED: POTA20PA40 PO (10:46)
[2022-09-08 12:21] VITALS: BP 146/75
== END 2022-09-08 12:24 | disposition home or self-care (01) ==
LOC: ER 07:59
DX: E86.0 Dehydration (principal); E87.6 Hypokalemia; E78.00 Pure hypercholesterolemia, unspecified; G89.29 Other chronic pain; M54.9 Dorsalgia, unspecified; I10 Essential (primary) hypertension; Z88.5 Allergy status to narcotic agent; Z88.8 Allergy status to other drugs, medicaments and biological substances; Z79.899 Other long term (current) drug therapy; Z79.1 Long term (current) use of non-steroidal anti-inflammatories (NSAID); Z79.2 Long term (current) use of antibiotics
CPT/HCPCS: 36415; 80053; 84145; 85025; 96360; 96361; 99284; J7030

== ENCOUNTER 2022-09-15 07:24 | Emergency (ER) | payer BC, MEDICARE ==
[~2022-09-15] VITALS: Ht 160 cm; Wt 64.5 kg
[~2022-09-15 07:24] MED LIST changes: +POTA20PA40 PO
[2022-09-15] MEDS ORDERED: normal saline 1000ml 1,000 ML IV ONE (07:55)
[2022-09-15 08:32] LABS: ALANINE AMINOTRANSFERASE 16 U/L (12-78); ALBUMIN 3.5 G/DL (3.4-5.0); ALKALINE PHOSPHATASE 85 IU/L (46-116); ANION GAP 11 (8-16); ASPARTATE AMINO TRANSFERASE 15 U/L (10-37); BILIRUBIN,TOTAL 0.7 MG/DL (0.1-1.0); BLOOD UREA NITROGEN 12 MG/DL (7-18); CALCIUM 9.1 MG/DL (8.5-10.1); CHLORIDE 104 MMOL/L (99-107); GLUCOSE 121 MG/DL (70-104); SODIUM 142 MMOL/L (135-145); TOTAL CARBON DIOXIDE 27.5 MMOL/L (24-32); TOTAL PROTEIN 7.1 G/DL (6.4-8.2); eGFR 71 ML/MIN
[2022-09-15 08:35] LABS: BASOPHILS % (AUTO) 0.4 % (0-1); EOSINOPHILS # (AUTO) 0.1 X10'3 (0-0.9); EOSINOPHILS % (AUTO) 0.9 % (0-6); HEMATOCRIT 34.8 % (35.0-45.0); HEMOGLOBIN 11.8 g/dl (12.0-16.0); LYMPHOCYTES # (AUTO) 0.2 X10'3 (1.1-4.8); LYMPHOCYTES % (AUTO) 3.1 % (21-51); MEAN CORPUSCULAR HGB CONC 33.9 g/dL (33.0-36.5); MEAN CORPUSCULAR VOLUME 91.3 FL (78-98); MEAN PLATELET VOLUME 8.6 FL (7.4-10.4); MONOCYTES # (AUTO) 0.4 X10'3 (0-0.9); MONOCYTES % (AUTO) 5.9 % (2-12); NEUTROPHILS # (AUTO) 6.7 X10'3 (1.8-7.7); NEUTROPHILS % (AUTO) 89.7 % (42-75); PLATELET COUNT 242 X10'3 (140-440); RED BLOOD COUNT 3.81 X10'6 (4.20-5.60); RED CELL DISTRIBUTION WIDTH 13.5 % (11.5-14.5); WHITE BLOOD COUNT 7.5 X10'3 (4.5-11.0)
[2022-09-15] MEDS ORDERED: magnesium 2GM in 50ml NS 50 ML IV ONE (08:50)
[2022-09-15] MEDS ORDERED: potassium Cl 40MEQ/1/2NS 520ml 520 ML IV ONE (08:50)
[2022-09-15 12:00] VITALS: BP 169/105
== END 2022-09-15 15:16 | disposition home or self-care (01) ==
LOC: ER 07:24
DX: E86.0 Dehydration (principal); E87.6 Hypokalemia; R05.9 Cough, unspecified; E78.00 Pure hypercholesterolemia, unspecified; I10 Essential (primary) hypertension; Z88.5 Allergy status to narcotic agent; Z88.6 Allergy status to analgesic agent
CPT/HCPCS: 36415; 80053; 85025; 96361; 96365; 96366; 96368; 99285; J3475; J3480; J7030

== ENCOUNTER 2022-09-17 08:50 | Emergency (ER) | payer BC, MEDICARE ==
[~2022-09-17] VITALS: Ht 160 cm; Wt 63.6 kg
[2022-09-17] MEDS ORDERED: dextrose 5%-lactated ringers 1,000 ML IV ONE (09:15)
[2022-09-17 09:29] LABS: BASOPHILS % (AUTO) 0.4 % (0-1); EOSINOPHILS # (AUTO) 0.1 X10'3 (0-0.9); EOSINOPHILS % (AUTO) 2.4 % (0-6); HEMATOCRIT 35.3 % (35.0-45.0); HEMOGLOBIN 12.1 g/dl (12.0-16.0); LYMPHOCYTES # (AUTO) 0.3 X10'3 (1.1-4.8); LYMPHOCYTES % (AUTO) 4.2 % (21-51); MEAN CORPUSCULAR HEMOGLOBIN 31.2 PG (27.0-31.0); MEAN CORPUSCULAR HGB CONC 34.4 g/dL (33.0-36.5); MEAN CORPUSCULAR VOLUME 90.9 FL (78-98); MONOCYTES # (AUTO) 0.4 X10'3 (0-0.9); MONOCYTES % (AUTO) 6.5 % (2-12); NEUTROPHILS # (AUTO) 5.3 X10'3 (1.8-7.7); NEUTROPHILS % (AUTO) 86.5 % (42-75); PLATELET COUNT 239 X10'3 (140-440); RED BLOOD COUNT 3.88 X10'6 (4.20-5.60); RED CELL DISTRIBUTION WIDTH 13.6 % (11.5-14.5); WHITE BLOOD COUNT 6.1 X10'3 (4.5-11.0)
[2022-09-17 09:42] LABS: ALANINE AMINOTRANSFERASE 15 U/L (12-78); ALBUMIN 3.7 G/DL (3.4-5.0); ALBUMIN/GLOBULIN RATIO 1.1 (1.1-1.5); ALKALINE PHOSPHATASE 83 IU/L (46-116); ANION GAP 13 (8-16); ASPARTATE AMINO TRANSFERASE 24 U/L (10-37); BILIRUBIN,TOTAL 0.9 MG/DL (0.1-1.0); BLOOD UREA NITROGEN 6 MG/DL (7-18); BUN/CREATININE RATIO 7.7 (10.0-20.0); CALCIUM 9.5 MG/DL (8.5-10.1); CHLORIDE 102 MMOL/L (99-107); CREATININE 0.78 MG/DL (0.40-0.90); GLUCOSE 118 MG/DL (70-104); MAGNESIUM 1.5 MG/DL (1.5-2.4); SODIUM 142 MMOL/L (135-145); TOTAL CARBON DIOXIDE 26.7 MMOL/L (24-32); TOTAL PROTEIN 7.2 G/DL (6.4-8.2); eGFR 73 ML/MIN
[2022-09-17 09:46] LABS: POTASSIUM 2.9 MMOL/L (3.5-5.1)
[2022-09-17] MEDS ORDERED: potassium Cl 40MEQ/1/2NS 520ml 520 ML IV ONE (09:55)
[2022-09-17] MEDS ORDERED: POTASSIUM BICARB 20meq eff tab 20 MEQ TABLET.EFF PO ONE (09:55)
[2022-09-17 15:01] VITALS: BP 158/93
== END 2022-09-17 15:37 | disposition home or self-care (01) ==
LOC: ER 08:51
DX: E86.0 Dehydration (principal); E87.6 Hypokalemia; R13.10 Dysphagia, unspecified; E78.00 Pure hypercholesterolemia, unspecified; I10 Essential (primary) hypertension; G89.29 Other chronic pain; M54.9 Dorsalgia, unspecified; Z88.5 Allergy status to narcotic agent; Z88.6 Allergy status to analgesic agent; Z79.899 Other long term (current) drug therapy
CPT/HCPCS: 36415; 80053; 83735; 84100; 85025; 96365; 96366; 99285; J3480; J7030; J7121; J7042

== ENCOUNTER 2022-09-19 13:39 | Emergency (ER) | payer BC, MEDICARE ==
[~2022-09-19] VITALS: Ht 160 cm; Wt 63.0 kg
[2022-09-19 13:44] VITALS: BP 154/72
[2022-09-19] MEDS ORDERED: normal saline 1000ml 1,000 ML IV ONE (15:40)
== END 2022-09-19 15:44 | disposition home or self-care (01) ==
LOC: ER 13:39
DX: E86.0 Dehydration (principal); E78.00 Pure hypercholesterolemia, unspecified; I10 Essential (primary) hypertension; G89.29 Other chronic pain; Z86.73 Personal history of transient ischemic attack (TIA), and cerebral infarction without residual deficits; Z98.890 Other specified postprocedural states; Z88.5 Allergy status to narcotic agent; Z88.8 Allergy status to other drugs, medicaments and biological substances; Z88.6 Allergy status to analgesic agent; Z79.82 Long term (current) use of aspirin; Z79.899 Other long term (current) drug therapy
CPT/HCPCS: 99283; J7030

== ENCOUNTER 2022-09-23 07:30 | Inpatient (IN) | payer BC, MEDICARE ==
[~2022-09-23] VITALS: Ht 160 cm; Wt 65.1 kg
[2022-09-23] MEDS ORDERED: ondansetron/PF 4mg/2ml inj IV ONE (09:05)
[2022-09-23] MEDS ORDERED: fluconazole-Diflucan 200mg/NS 100 ML IV ONE (09:30)
[2022-09-23 09:34] LABS: BASOPHILS % (AUTO) 0.3 % (0-1); EOSINOPHILS # (AUTO) 0.1 X10'3 (0-0.9); EOSINOPHILS % (AUTO) 1.2 % (0-6); HEMATOCRIT 32.4 % (35.0-45.0); HEMOGLOBIN 11.2 g/dl (12.0-16.0); LYMPHOCYTES # (AUTO) 0.4 X10'3 (1.1-4.8); LYMPHOCYTES % (AUTO) 4.8 % (21-51); MEAN CORPUSCULAR HEMOGLOBIN 31.3 PG (27.0-31.0); MEAN CORPUSCULAR HGB CONC 34.7 g/dL (33.0-36.5); MEAN CORPUSCULAR VOLUME 90.2 FL (78-98); MEAN PLATELET VOLUME 8.2 FL (7.4-10.4); MONOCYTES # (AUTO) 0.5 X10'3 (0-0.9); MONOCYTES % (AUTO) 6.5 % (2-12); NEUTROPHILS # (AUTO) 6.8 X10'3 (1.8-7.7); NEUTROPHILS % (AUTO) 87.2 % (42-75); PLATELET COUNT 218 X10'3 (140-440); RED BLOOD COUNT 3.59 X10'6 (4.20-5.60); RED CELL DISTRIBUTION WIDTH 13.6 % (11.5-14.5); WHITE BLOOD COUNT 7.8 X10'3 (4.5-11.0)
[2022-09-23 09:45] LABS: ALANINE AMINOTRANSFERASE 13 U/L (12-78); ALBUMIN 3.6 G/DL (3.4-5.0); ALBUMIN/GLOBULIN RATIO 1.2 (1.1-1.5); ALKALINE PHOSPHATASE 76 IU/L (46-116); ANION GAP 16 (8-16); ASPARTATE AMINO TRANSFERASE 14 U/L (10-37); BILIRUBIN,TOTAL 0.9 MG/DL (0.1-1.0); BLOOD UREA NITROGEN 17 MG/DL (7-18); BUN/CREATININE RATIO 20.2 (10.0-20.0); CHLORIDE 102 MMOL/L (99-107); CREATININE 0.84 MG/DL (0.40-0.90); GLUCOSE 89 MG/DL (70-104); MAGNESIUM 1.6 MG/DL (1.5-2.4); SODIUM 144 MMOL/L (135-145); TOTAL CARBON DIOXIDE 25.8 MMOL/L (24-32); TOTAL PROTEIN 6.7 G/DL (6.4-8.2); eGFR 67 ML/MIN
[2022-09-23 09:52] LABS: POTASSIUM 2.9 MMOL/L (3.5-5.1)
[2022-09-23] MEDS ORDERED: potassium Cl 40MEQ/1/2NS 520ml 520 ML IV PRN (11:10)
[2022-09-23] MEDS ORDERED: ondansetron/PF 4mg/2ml inj IV PRN (11:10)
[2022-09-23] MEDS ORDERED: potassium Cl 20 mEq SR tablet PO PRN ×2 (11:10)
[2022-09-23] MEDS ORDERED: magnesium 4gm in 100ml NS 100 ML IV PRN (11:10)
[2022-09-23] MEDS ORDERED: magnesium Cl slow-release 64mg tablet PO PRN (11:10)
[2022-09-23] MEDS: potassium 20mEq/D5LR 1,000 ML IV SCH ×4 (11:14→23:49)
--- NOTE | 2022-09-23 12:30 | NUR ---
Received report from ED RN. Assumed care of patient on tele floor in room 3022. Patient stable at this time. vital signs stable.
[2022-09-23 12:45] VITALS: BP 147/64
[2022-09-23] MEDS ORDERED: nystatin 500,000 unit/5ML UD oral suspension PO ONE (13:00)
[2022-09-23] MEDS: normal saline 1000ml 1,000 ML IV SCH (13:23)
--- NOTE | 2022-09-23 13:51 | NUR ---
TPN Consult: Pt admit DX decreased oral intake, FTT, unintentional wt loss per EMR. 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 GI MD consulted for PEG placement pending evaluation at this time w/ pt receiving KCL/D5W/LR at 250ml/hr providing 1020 kcals/day per EMR. RD paged MD regarding need for TPN since pt doesn't have central line, possibly to have PEG placement in near future, and no RECREATION OFFICER consult this admit; if to have PN would benefit from PPN since pt already hase PIV. THERMOFORMING OPERATOR TC, per THERMOFORMING OPERATOR MD called and agrees w/ PPN/RECREATION OFFICER BSS in interim, recs below. Able to meet ~80% kcal and 100% protein estimated needs given nature of PPN. Pt seen by RD at bedside; pt reports UBW ~183 pounds April 2022 recovered from prior surgeries well but then underwent daily radiation treatment for 6 weeks straight last 09/05 resulting in inability to consume/tolerate PO as well as elimination of appetite. RD educated pt/friend at bedside regarding IF to have PEG how nutrition support would work to meet needs. Pt showed me ~1oz of water consumed from water bottle reports only intake today. Pt covered in long sleeve clothing though moderate temporal wasting evident and, given current chair scaled wt 61.6kg (~136 pounds), ~26% UBW loss 5 months severe meeting malnutrition criteria; MD notified. Will make EN/PN recs below and monitor for changes w/ nutrition POC this admit. Rec: 1. Continuous PPN via peripheral line per MD using 2:1 Clinimix E 4.25/10 at 105ml/hr goal w/ separate 100ml 20% ILE to run for 12 hours daily at 8.33ml/hr. In total, to provide 2520ml volume/day, 107g AA, 252g DEX(2.84mg/kg/min), and 1485 kcals/day. 2. TG/PALB Q /; daily scaled wt 3. Monitor for PN tolerance and signs of refeeding; wean KCL/D5W/LR w/ PN advancement 4. Monitor for PO diet advancement per RECREATION OFFICER/MD recs 5. IF to have PEG EN recommend lower fiber formula w/ scFOS initially given nutrition repletion needs w/ hx poor oral tolerance and low intake past 5 months- transition to higher fiber formula once EN tolerance assured. IF EN; Pivot 1.5 at 54ml/hr goal would provide 1296ml volume/day, 1944 kcals, 972ml water, and 122g protein 6. IF PEG TF; additional water flush 200ml Q4H 7. IF transition from PPN to EN via PEG; routine multivitamin w/ mineral supplement given severe malnutrition status Addendum: 09/23/22 at [address] Amended: Links added.
[2022-09-23 14:00] VITALS: BP 160/76
[2022-09-23] MEDS ORDERED: Dextrose 10%-water IV solution 1,000 ML IV PRN (14:20)
[2022-09-23] MEDS ORDERED: SELENIUM IV SCH ×2 (15:00→15:30)
[2022-09-23] MEDS ORDERED: [UNRECOGNIZED DRUG - OTHER] IV SCH ×2 (15:00→15:30)
[2022-09-23] MEDS ORDERED: ZINC IV SCH ×2 (15:00→15:30)
[2022-09-23] MEDS ORDERED: COPPER IV SCH ×2 (15:00→15:30)
[2022-09-23] MEDS ORDERED: CHROMIC CHLORIDE IV SCH ×2 (15:00→15:30)
[2022-09-23] MEDS ORDERED: MANGANESE IV SCH ×2 (15:00→15:30)
[2022-09-23] MEDS ORDERED: fat emulsion 20% inj. 100 ML IV SCH (15:00)
[2022-09-23 15:17] LABS: PHOSPHORUS 3.8 MG/DL (2.3-4.5); PREALBUMIN 13.8 MG/DL (19-36); TRIGLYCERIDES 108 MG/DL (20-135)
--- NOTE | 2022-09-23 17:34 | NUR ---
I agree with AIRCRAFT QUALITY CONTROL INSPECTOR assessment excepted noted changes.
[2022-09-23] MEDS ORDERED: PILO5TAB10 PO (17:58)
[2022-09-23] MEDS ORDERED: TRAM50TA2 PO (17:58)
[2022-09-23] MEDS ORDERED: ONDA4TAB12 PO (17:58)
[2022-09-23] MEDS ORDERED: HYDROCHLOROTHIAZIDE PO (17:58)
[2022-09-23 18:00] VITALS: BP 160/56
[2022-09-23] MEDS ORDERED: DICL100G30 TOP (18:02)
--- NOTE | 2022-09-23 18:20 | NUR ---
Patient in room PCU 3022. I have received report from GAIL Tolentino and had the opportunity to ask questions and assume patient care.
--- NOTE | 2022-09-23 18:33 | NUR ---
Problems reprioritized. Patient report given, questions answered & plan of care reviewed with GAIL Anderson.
[2022-09-23 20:00] VITALS: BP 160/56
[2022-09-23] MEDS: K and/or MAG REPLACEMENT MC SCH (20:00)
--- NOTE | 2022-09-23 20:30 | NUR ---
pt had not had PPN started. Dr. Aquino notified regarding PPN and did he want to order PICC line. put the PPN on hold. So it was not given. Thoughts were that pt needed central line for the PPN. Pharmacy notified that we could infuse PPN with a peripheral IV. Pt to get PEG tube placed in am of Thursday. Pt has IV fluids infusing that does contain dextrose.
[2022-09-23] MEDS ORDERED: temazepam 15mg capsule PO PRN (21:00)
[2022-09-23 22:00] VITALS: BP 151/71
[2022-09-23] MEDS: citalopram 20mg tablet PO SCH (22:00)
[2022-09-23] MEDS ORDERED: ondansetron 4mg rapidly disintigrating tab PO PRN (22:00)
[2022-09-23] MEDS ORDERED: valacyclovir 500mg tablet PO SCH ×2 (22:00→22:05)
[2022-09-23] MEDS ORDERED: traZODone 50mg tablet PO SCH (22:13)
[2022-09-24] VITALS (7 sets, daily range): BP systolic 138–157; BP diastolic 62–97
[2022-09-24] MEDS: potassium 20mEq/D5LR 1,000 ML IV SCH ×6 (04:07→21:07)
--- NOTE | 2022-09-24 06:42 | NUR ---
Problems reprioritized. Patient report given, questions answered & plan of care reviewed with GAIL Smith.
[2022-09-24 07:38] LABS: BASOPHILS % (AUTO) 0.5 % (0-1); EOSINOPHILS # (AUTO) 0.1 X10'3 (0-0.9); EOSINOPHILS % (AUTO) 2.3 % (0-6); HEMATOCRIT 31.5 % (35.0-45.0); HEMOGLOBIN 10.7 g/dl (12.0-16.0); LYMPHOCYTES # (AUTO) 0.3 X10'3 (1.1-4.8); LYMPHOCYTES % (AUTO) 5.6 % (21-51); MEAN CORPUSCULAR HEMOGLOBIN 31.1 PG (27.0-31.0); MEAN CORPUSCULAR HGB CONC 33.9 g/dL (33.0-36.5); MEAN CORPUSCULAR VOLUME 91.7 FL (78-98); MEAN PLATELET VOLUME 8.5 FL (7.4-10.4); MONOCYTES # (AUTO) 0.4 X10'3 (0-0.9); MONOCYTES % (AUTO) 9.3 % (2-12); NEUTROPHILS # (AUTO) 3.9 X10'3 (1.8-7.7); NEUTROPHILS % (AUTO) 82.3 % (42-75); PLATELET COUNT 187 X10'3 (140-440); RED BLOOD COUNT 3.44 X10'6 (4.20-5.60); RED CELL DISTRIBUTION WIDTH 13.6 % (11.5-14.5); WHITE BLOOD COUNT 4.7 X10'3 (4.5-11.0)
[2022-09-24] MEDS ORDERED: fentaNYL/PF 50MCG/1 ML 2ML syringe ONE (07:50)
[2022-09-24] MEDS ORDERED: MIDAZolam 1 MG/ML 5ML VIAL ONE (07:50)
[2022-09-24] MEDS ORDERED: LIDOcaine Viscous 15ml cup ONE (07:51)
[2022-09-24] MEDS ORDERED: aspirin 81mg, enteric-coated 1 TAB TABLET.DR PO SCH (08:00)
[2022-09-24] MEDS ORDERED: HYDROchlorothiazide 12.5mg capsule PO SCH (08:00)
[2022-09-24] MEDS ORDERED: atorvastatin 20mg tablet PO SCH (08:00)
[2022-09-24] MEDS: K and/or MAG REPLACEMENT MC SCH ×2 (08:00→20:30)
--- NOTE | 2022-09-24 08:00 | NUR ---
report given at beginning of shift that pt refused orthostatic vital signs from morning nurse. Addendum: 09/25/22 at 0534 by Bria Pineda RN Amended: Links added.
[2022-09-24 08:05] LABS: ALANINE AMINOTRANSFERASE 11 U/L (12-78); ALBUMIN/GLOBULIN RATIO 1.1 (1.1-1.5); ALKALINE PHOSPHATASE 66 IU/L (46-116); ANION GAP 8 (8-16); ASPARTATE AMINO TRANSFERASE 18 U/L (10-37); BILIRUBIN,TOTAL 0.6 MG/DL (0.1-1.0); BLOOD UREA NITROGEN 6 MG/DL (7-18); BUN/CREATININE RATIO 9.8 (10.0-20.0); CALCIUM 8.7 MG/DL (8.5-10.1); CHLORIDE 106 MMOL/L (99-107); CREATININE 0.61 MG/DL (0.40-0.90); GLUCOSE 163 MG/DL (70-104); MAGNESIUM 1.2 MG/DL (1.5-2.4); PHOSPHORUS 2.7 MG/DL (2.3-4.5); POTASSIUM 3.2 MMOL/L (3.5-5.1); SODIUM 143 MMOL/L (135-145); TOTAL CARBON DIOXIDE 29.5 MMOL/L (24-32); TOTAL PROTEIN 5.7 G/DL (6.4-8.2); eGFR > 90 ML/MIN
[2022-09-24] MEDS ORDERED: hydrALAZINE 20mg/ml inj. IV PRN (09:40)
[2022-09-24] MEDS ORDERED: lactose-reduced food (Ensure Enlive) - 237ml bottle PEG SCH (13:00)
[2022-09-24] MEDS: citalopram 20mg tablet PO SCH (13:27)
--- NOTE | 2022-09-24 13:40 | NUR ---
Nutrition Consult "nutrition ed": Pt seen by RD yesterday for thorough education on how initiation of EN and transition to intermittent EN works as well as explanation of tube feed formulas. PPN was never initiated last night since thought it had to be run via central line per RN note w/ pt remaining NPO now s/p PEG placement per RN today. Continues to receive KCL/LR/D5W at 250ml/hr per EMR providing some nutrition. Noted Ensure Enlive TIDWM via PEG ordered by MD for nutrition in interim per MD note; RD paged MD regarding if pt to be feed then tube feed more appropriate for nutrition repletion than EN especially w/ pt remaining NPO. Pending return call at this time. Rec: 1. IF continuous EN via PEG; Pivot 1.5 at 54ml/hr goal would provide 1296ml volume/day, 1944 kcals, 972ml water, and 122g protein. Recommend lower fiber formula w/ scFOS initially given nutrition repletion needs w/ hx poor oral tolerance and low intake past 5 months- transition to higher fiber formula once EN tolerance assured. 2. IF EN; additional water flush 200ml Q4H 3. Once EN; PALB Q /; daily scaled wts 4. Monitor for PO diet advancement per MACHINE CEMENTER/MD recs 5. Once PO vs EN via PEG; routine multivitamin w/ mineral supplement given severe malnutrition status Addendum: 09/24/22 at [address] Amended: Links added.
--- NOTE | 2022-09-24 14:05 | NUR ---
TF Consult: RD contact by MD via TC; MD agreeable to stop Ensures and initiate TF at this time; recs below. Will monitor for EN tolerance and further adjustment needs as medically indicated. Rec: 1. Continuous TF per MD via PEG using Pivot 1.5 at 54ml/hr goal; to provide 1296ml volume/day, 1944 kcals, 972ml water, and 122g protein. Recommend lower fiber formula w/ scFOS initially given nutrition repletion needs w/ hx poor oral tolerance and low intake past 5 months- transition to higher fiber formula once EN tolerance assured. 2. additional water flush 200ml Q4H; monitor serum Na 3. PALB Q /; daily scaled wts 4. Wean D5 once EN advanced to goal and tolerance assured; monitor for EN tolerance and adjustment needs as medically indicated 5. Monitor for PO diet advancement per MECHANICAL DESIGN ENGINEER/MD recs 6. Consider routine multivitamin w/ mineral supplement given severe malnutrition status per physician discretion; pending B12,Fe, and ferritin labs in EMR Addendum: 09/24/22 at [address] Amended: Links added.
[2022-09-24] MEDS ORDERED: traMADol 50MG tablet PO PRN ×2 (14:30→22:16)
[2022-09-24] MEDS ORDERED: temazepam 15mg capsule PEG PRN (14:59)
[2022-09-24] MEDS ORDERED: POTASSIUM BICARB 20meq eff tab 20 MEQ TABLET.EFF PEG PRN ×2 (14:59)
[2022-09-24] MEDS ORDERED: traZODone 50mg tablet PEG SCH (15:00)
[2022-09-24] MEDS: traMADol 50MG tablet PEG PRN ×2 (15:41→20:53)
--- NOTE | 2022-09-24 20:00 | NUR ---
Pt refused orthostatic vital signs. Addendum: 09/25/22 at 0527 by Bria Pineda RN Amended: Links added.
[2022-09-24] MEDS: magnesium 2GM in 50ml NS 50 ML IV PRN (20:55)
--- NOTE | 2022-09-24 22:20 | NUR ---
pt refused orthostatic VS Addendum: 09/24/22 at 2221 by Bria Pineda RN Amended: Links added.
[2022-09-24] MEDS: valacyclovir 500mg tablet PEG SCH (23:08)
[2022-09-25] MEDS: potassium 20mEq/D5LR 1,000 ML IV SCH ×5 (01:18→20:11)
[2022-09-25 03:00] VITALS: BP 134/50
--- NOTE | 2022-09-25 03:53 | NUR ---
Nurse started enteral tube feed at 1900 per orders Pivot 1.5 formula at 20ml/hr. Throughout the shift tube feed would alarm every hour or two, multiple nurses tried to fix the issue by changing the pump out x3, changing tubing x3, nothing worked . Nurse stopped tube feeding pump so pt could get some rest. Will notify day shift nurse to consult with provider.
[2022-09-25 06:00] VITALS: BP 159/60
--- NOTE | 2022-09-25 06:34 | NUR ---
Problems reprioritized. Patient report given, questions answered & plan of care reviewed with Jody REYNOLDS. Pt stable at shift change.
--- NOTE | 2022-09-25 06:40 | NUR ---
Patient in room PCU 3022. I have received report from Bria REYNOLDS and had the opportunity to ask questions and assume patient care.
[2022-09-25 06:55] LABS: BASOPHILS % (AUTO) 0.3 % (0-1); EOSINOPHILS # (AUTO) 0.1 X10'3 (0-0.9); EOSINOPHILS % (AUTO) 1.7 % (0-6); HEMATOCRIT 30.2 % (35.0-45.0); HEMOGLOBIN 10.5 g/dl (12.0-16.0); LYMPHOCYTES # (AUTO) 0.3 X10'3 (1.1-4.8); LYMPHOCYTES % (AUTO) 3.9 % (21-51); MEAN CORPUSCULAR HEMOGLOBIN 31.7 PG (27.0-31.0); MEAN CORPUSCULAR HGB CONC 34.9 g/dL (33.0-36.5); MEAN CORPUSCULAR VOLUME 90.7 FL (78-98); MEAN PLATELET VOLUME 8.5 FL (7.4-10.4); MONOCYTES # (AUTO) 0.5 X10'3 (0-0.9); MONOCYTES % (AUTO) 7.1 % (2-12); NEUTROPHILS # (AUTO) 5.8 X10'3 (1.8-7.7); PLATELET COUNT 172 X10'3 (140-440); RED BLOOD COUNT 3.33 X10'6 (4.20-5.60); RED CELL DISTRIBUTION WIDTH 13.7 % (11.5-14.5); WHITE BLOOD COUNT 6.7 X10'3 (4.5-11.0)
[2022-09-25] MEDS: HYDROchlorothiazide 12.5mg capsule PEG SCH (07:03)
[2022-09-25] MEDS: citalopram 20mg tablet PEG SCH (07:04)
[2022-09-25] MEDS: aspirin 81mg tab.chew PEG SCH (07:04)
[2022-09-25] MEDS: atorvastatin 20mg tablet PEG SCH (07:04)
[2022-09-25] MEDS: traMADol 50MG tablet PEG PRN ×2 (07:04→14:14)
[2022-09-25 07:25] LABS: % IRON SATURATION 17 % (11-46); IRON 25 UG/DL (49-151); TOTAL IRON BINDING CAPACITY 149 UG/DL (259-388)
[2022-09-25 07:35] LABS: ALANINE AMINOTRANSFERASE 10 U/L (12-78); ALBUMIN 2.8 G/DL (3.4-5.0); ALKALINE PHOSPHATASE 68 IU/L (46-116); ANION GAP 5 (8-16); ASPARTATE AMINO TRANSFERASE 8 U/L (10-37); BILIRUBIN,TOTAL 0.7 MG/DL (0.1-1.0); BLOOD UREA NITROGEN 2 MG/DL (7-18); CALCIUM 8.3 MG/DL (8.5-10.1); CHLORIDE 106 MMOL/L (99-107); CREATININE 0.66 MG/DL (0.40-0.90); FERRITIN 306 NG/ML (8-252); GLUCOSE 158 MG/DL (70-104); MAGNESIUM 1.4 MG/DL (1.5-2.4); PHOSPHORUS 2.5 MG/DL (2.3-4.5); POTASSIUM 3.4 MMOL/L (3.5-5.1); PREALBUMIN 11.1 MG/DL (19-36); SODIUM 141 MMOL/L (135-145); TOTAL PROTEIN 5.5 G/DL (6.4-8.2); TRIGLYCERIDES 43 MG/DL (20-135); eGFR 89 ML/MIN
[2022-09-25] MEDS: K and/or MAG REPLACEMENT MC SCH ×2 (08:00→19:51)
[2022-09-25] MEDS ORDERED: PILOCARPINE HCL 5 MG PO PRN (10:25)
[2022-09-25 11:00] VITALS: BP 132/56
[2022-09-25] MEDS: normal saline 1000ml 1,000 ML IV SCH (11:10)
--- NOTE | 2022-09-25 12:31 | NUR ---
Spoke with Cristel the briefcase sewer advised Dr Isabel would like to place patient on bolus feeds prior to discharge. Cristel aware with all the problems with tube feeding not working last night and now it is working but patient is only running at 25ml/hr for approx 3 hours and now the tube feed has stopped til after patient has CT scan with contrast in the PEG tube. Cristel will see patient tomorrow and possibly transition to bolus feeds.
[2022-09-25] MEDS ORDERED: potassium Cl 40MEQ/1/2NS 520ml 520 ML IV ONE (13:00)
[2022-09-25] MEDS ORDERED: [UNRECOGNIZED DRUG - OTHER] PO ONE (13:00)
[2022-09-25] MEDS: nystatin 500,000 unit/5ML UD oral suspension PO SCH ×2 (13:24→22:07)
[2022-09-25 15:00] VITALS: BP 142/73
--- NOTE | 2022-09-25 15:14 | NUR ---
PAGER ID: [phone] MESSAGE: Jody IBRAHIM [phone] Re: Ronny please call re: WANG results
--- NOTE | 2022-09-25 15:38 | NUR ---
Restarted patients tube feeding Pivot 1.5 @ 25 ml's
--- NOTE | 2022-09-25 16:45 | NUR ---
PAGER ID: [phone] MESSAGE: Jody Hassan [phone] Re: Ronny please call re Pain medication?
[2022-09-25] MEDS ORDERED: ketorolac tromethamine 15mg/ml inj. IV ONE (17:10)
[2022-09-25 18:00] VITALS: BP 135/56
--- NOTE | 2022-09-25 18:38 | NUR ---
Problems reprioritized. Patient report given, questions answered & plan of care reviewed with Bria REYNOLDS.
--- NOTE | 2022-09-25 18:39 | NUR ---
Patient in room PCU 3022. I have received report from Jody REYNOLDS, and had the opportunity to ask questions and assume patient care.
[2022-09-25] MEDS: magnesium 2GM in 50ml NS 50 ML IV PRN (20:00)
[2022-09-25] MEDS: valacyclovir 500mg tablet PEG SCH (22:50)
[2022-09-25] MEDS: traZODone 50mg tablet PEG SCH (22:50)
[2022-09-25 23:00] VITALS: BP 141/56
[2022-09-26] MEDS: traZODone 50mg tablet PEG SCH
[2022-09-26 02:00] VITALS: BP 110/37
[2022-09-26] MEDS: oxyCODONE/APAP 5-325mg tablet PO PRN ×2 (05:08→12:43)
--- NOTE | 2022-09-26 06:33 | NUR ---
Pt refused bowel care multiple times this shift, has not had a bowel movement x5 days per patient. Nurse educated pt to importance of having a bowle movement. Pt deneis pain.discomfort. No abd. distention noticed upon assessment. Bowel sounds x4.
--- NOTE | 2022-09-26 06:35 | NUR ---
Problems reprioritized. Patient report given, questions answered & plan of care reviewed with Jody REYNOLDS. Pt stable at shift change.
--- NOTE | 2022-09-26 06:41 | NUR ---
Patient in room PCU 3022. I have received report from Bria REYNOLDS and had the opportunity to ask questions and assume patient care.
[2022-09-26 07:04] VITALS: BP 120/54
[2022-09-26] MEDS: K and/or MAG REPLACEMENT MC SCH ×2 (08:00→20:00)
[2022-09-26] MEDS ORDERED: MVI, adult No.4 with vit. K 10 ML in dextrose 5% water 500ml 500 ML IV SCH ×2 (08:00)
--- NOTE | 2022-09-26 09:09 | NUR ---
Advanced patient tube feeding to goal of 54ml/hr
[2022-09-26] MEDS: aspirin 81mg tab.chew PEG SCH (09:12)
[2022-09-26] MEDS: atorvastatin 20mg tablet PEG SCH (09:12)
[2022-09-26] MEDS: citalopram 20mg tablet PEG SCH (09:12)
[2022-09-26] MEDS: nystatin 500,000 unit/5ML UD oral suspension PO SCH ×3 (09:12→20:08)
[2022-09-26] MEDS: HYDROchlorothiazide 12.5mg capsule PEG SCH (09:12)
[2022-09-26 09:56] LABS: BASOPHILS % (AUTO) 0.3 % (0-1); EOSINOPHILS # (AUTO) 0.1 X10'3 (0-0.9); EOSINOPHILS % (AUTO) 1.8 % (0-6); HEMOGLOBIN 10.2 g/dl (12.0-16.0); LYMPHOCYTES # (AUTO) 0.3 X10'3 (1.1-4.8); LYMPHOCYTES % (AUTO) 3.8 % (21-51); MEAN CORPUSCULAR HEMOGLOBIN 31.2 PG (27.0-31.0); MEAN CORPUSCULAR HGB CONC 34.1 g/dL (33.0-36.5); MEAN CORPUSCULAR VOLUME 91.8 FL (78-98); MEAN PLATELET VOLUME 8.3 FL (7.4-10.4); MONOCYTES # (AUTO) 0.5 X10'3 (0-0.9); MONOCYTES % (AUTO) 7.5 % (2-12); NEUTROPHILS % (AUTO) 86.6 % (42-75); PLATELET COUNT 154 X10'3 (140-440); RED BLOOD COUNT 3.27 X10'6 (4.20-5.60); RED CELL DISTRIBUTION WIDTH 13.7 % (11.5-14.5); WHITE BLOOD COUNT 6.9 X10'3 (4.5-11.0)
[2022-09-26 10:12] LABS: ALBUMIN 2.5 G/DL (3.4-5.0); ANION GAP 3 (8-16); BLOOD UREA NITROGEN 7 MG/DL (7-18); BUN/CREATININE RATIO 12.5 (10.0-20.0); CALCIUM 8.1 MG/DL (8.5-10.1); CHLORIDE 106 MMOL/L (99-107); CREATININE 0.56 MG/DL (0.40-0.90); GLUCOSE 151 MG/DL (70-104); MAGNESIUM 2.4 MG/DL (1.5-2.4); SODIUM 139 MMOL/L (135-145); TOTAL CARBON DIOXIDE 30.5 MMOL/L (24-32); eGFR > 90 ML/MIN
[2022-09-26 11:00] VITALS: BP 120/54
[2022-09-26] MEDS: potassium 20mEq/D5LR 1,000 ML IV SCH ×2 (13:05→14:48)
[2022-09-26 15:00] VITALS: BP 135/64
[2022-09-26] MEDS ORDERED: PILOCARPINE HCL 5 MG PO PRN (15:40)
[2022-09-26] MEDS ORDERED: PILOCARPINE HCL 5 MG PEG PRN (15:40)
--- NOTE | 2022-09-26 16:00 | NUR ---
Patient started on Bolus tube feeding. Patient was able to do bolus feeding with nursing instruction. Patient checked residual which was 3 ml. patient administered 50ml free water then gave 1st bolus feeding of 124ml of Jevity, Patient flushed post bolus with 50ml of freewater. Patient tolerated well and patient followed instructions and all questions answered.
--- NOTE | 2022-09-26 16:03 | NUR ---
Reassessment: Pt reached goal rate with TF today and pt tolerating with little to no GRV. Per bedside RN, MD would like to transition to bolus TF to monitor tolerance so pt can continue bolus TF after discharge. EMR has been updated and recommendations were d/w bedside RN. Home bolus TF recs below were d/w CM. LBM 09/21, routine bowel care just added to med list today. Will continue to follow closely. Recommendations: 1) Bolus feed QID using Jevity 1.2, begin bolus TF at 124 mL and advance by 50 mL each bolus feed as tolerated. Once goal rate of 474 mL bolus is achieved, 474 mL bolus feed (2 cartons) TID with additional 237 mL (1 carton) bolus feed QD. To provide 1659 mL (7 cartons) total volume/day, 1991 kcal, 92 g protein, and 1337 mL water 2) Additional 50 mL water flush before and after each bolus feed; monitor serum Na 3) Prealbumin q Thursday/; daily scaled weights 4) Wean D5 once TF advanced to goal and tolerance assured 5) Continue NPO per ST recs; adjust TF as appropriate IF PO diet is advanced 6) Consider routine MVM supplement given severe malnutrition status per physician discretion 7) Routine bowel retirement BOLUS TF RECS: 1) Bolus feed QID using Jevity 1.2 or equivalent, begin bolus TF at 124 mL or previously tolerated rate and advance by 50 mL each bolus feed as tolerated. Once goal rate of 474 mL bolus is achieved, 474 mL bolus feed (2 cartons) TID with additional 237 mL (1 carton) bolus feed QD to total 1659 mL (7 cartons) a day 2) Additional 50 mL water flush before and after each bolus feed 3) Outpatient RD to titrate to goal rate and adjust recommendations as appropriate based on patient's estimated nutrient needs Addendum: 09/26/22 at [address] Amended: Links added.
[2022-09-26 18:00] VITALS: BP 144/50
--- NOTE | 2022-09-26 18:38 | NUR ---
Problems reprioritized. Patient report given, questions answered & plan of care reviewed with Aidan REYNOLDS.
[2022-09-26] MEDS: docusate sodium 100mg/10ml UD cup PEG SCH (20:09)
[2022-09-26] MEDS: oxyCODONE/APAP 5-325mg tablet PEG PRN (20:22)
[2022-09-26] MEDS: valacyclovir 500mg tablet PEG SCH (22:56)
[2022-09-26 23:00] VITALS: BP 133/62
[2022-09-27] MEDS: oxyCODONE/APAP 5-325mg tablet PEG PRN ×3 (02:22→17:47)
[2022-09-27 03:00] VITALS: BP 147/68
--- NOTE | 2022-09-27 06:43 | NUR ---
Patient in room PCU 3022. I have received report from Aidan REYNOLDS and had the opportunity to ask questions and assume patient care.
--- NOTE | 2022-09-27 06:46 | NUR ---
Problems reprioritized. Patient report given, questions answered & plan of care reviewed with Jody REYNOLDS. Patient stable at shift change.
[2022-09-27 07:00] VITALS: BP 169/83
[2022-09-27] MEDS: K and/or MAG REPLACEMENT MC SCH ×2 (08:00→20:00)
[2022-09-27] MEDS: nystatin 500,000 unit/5ML UD oral suspension PO SCH ×3 (08:17→23:07)
[2022-09-27] MEDS: docusate sodium 100mg/10ml UD cup PEG SCH ×2 (08:17→20:00)
[2022-09-27] MEDS: citalopram 20mg tablet PEG SCH (08:18)
[2022-09-27] MEDS: HYDROchlorothiazide 12.5mg capsule PEG SCH (08:18)
[2022-09-27] MEDS: atorvastatin 20mg tablet PEG SCH (08:18)
[2022-09-27] MEDS: aspirin 81mg tab.chew PEG SCH (08:18)
[2022-09-27 09:04] LABS: BASOPHILS % (AUTO) 0.2 % (0-1); EOSINOPHILS # (AUTO) 0.2 X10'3 (0-0.9); EOSINOPHILS % (AUTO) 2.4 % (0-6); HEMATOCRIT 29.8 % (35.0-45.0); HEMOGLOBIN 10.3 g/dl (12.0-16.0); LYMPHOCYTES # (AUTO) 0.3 X10'3 (1.1-4.8); LYMPHOCYTES % (AUTO) 3.9 % (21-51); MEAN CORPUSCULAR HEMOGLOBIN 31.7 PG (27.0-31.0); MEAN CORPUSCULAR HGB CONC 34.6 g/dL (33.0-36.5); MEAN CORPUSCULAR VOLUME 91.6 FL (78-98); MEAN PLATELET VOLUME 8.9 FL (7.4-10.4); MONOCYTES # (AUTO) 0.6 X10'3 (0-0.9); MONOCYTES % (AUTO) 7.9 % (2-12); NEUTROPHILS # (AUTO) 6.3 X10'3 (1.8-7.7); NEUTROPHILS % (AUTO) 85.6 % (42-75); PLATELET COUNT 142 X10'3 (140-440); RED BLOOD COUNT 3.25 X10'6 (4.20-5.60); RED CELL DISTRIBUTION WIDTH 13.7 % (11.5-14.5); WHITE BLOOD COUNT 7.3 X10'3 (4.5-11.0)
[2022-09-27 09:05] LABS: ALBUMIN 2.6 G/DL (3.4-5.0); ANION GAP 4 (8-16); BLOOD UREA NITROGEN 6 MG/DL (7-18); CALCIUM 8.3 MG/DL (8.5-10.1); CHLORIDE 107 MMOL/L (99-107); GLUCOSE 112 MG/DL (70-104); MAGNESIUM 1.5 MG/DL (1.5-2.4); POTASSIUM 3.6 MMOL/L (3.5-5.1); SODIUM 141 MMOL/L (135-145); TOTAL CARBON DIOXIDE 29.6 MMOL/L (24-32); eGFR > 90 ML/MIN
[2022-09-27] MEDS: potassium 20mEq/D5LR 1,000 ML IV SCH ×2 (09:05→15:58)
[2022-09-27 11:00] VITALS: BP 117/41
[2022-09-27 15:00] VITALS: BP 131/51
--- NOTE | 2022-09-27 16:26 | NUR ---
Patient completed tube feed 324ml's with freewater 50ml prior an after feeding. Patient had 44ml's residual prior to feeding start
[2022-09-27 18:00] VITALS: BP 139/56
--- NOTE | 2022-09-27 18:39 | NUR ---
Problems reprioritized. Patient report given, questions answered & plan of care reviewed with Lexi CARSON.
[2022-09-27 22:00] VITALS: BP 159/65
[2022-09-27] MEDS: valacyclovir 500mg tablet PEG SCH (22:51)
[2022-09-27] MEDS: traZODone 50mg tablet PEG SCH (22:51)
[2022-09-28] MEDS: oxyCODONE/APAP 5-325mg tablet PEG PRN ×3 (00:04→20:16)
[2022-09-28] MEDS: potassium 20mEq/D5LR 1,000 ML IV SCH ×3 (01:58→23:10)
[2022-09-28 02:00] VITALS: BP 149/79
[2022-09-28 03:33] LABS: ALBUMIN 2.5 G/DL (3.4-5.0); ANION GAP 7 (8-16); BLOOD UREA NITROGEN 8 MG/DL (7-18); BUN/CREATININE RATIO 14.8 (10.0-20.0); CALCIUM 8.9 MG/DL (8.5-10.1); CHLORIDE 104 MMOL/L (99-107); CREATININE 0.54 MG/DL (0.40-0.90); GLUCOSE 127 MG/DL (70-104); SODIUM 140 MMOL/L (135-145); TOTAL CARBON DIOXIDE 29.5 MMOL/L (24-32); eGFR > 90 ML/MIN
[2022-09-28 04:00] LABS: BASOPHILS % (AUTO) 0.3 % (0-1); EOSINOPHILS # (AUTO) 0.2 X10'3 (0-0.9); EOSINOPHILS % (AUTO) 2.9 % (0-6); HEMATOCRIT 28.8 % (35.0-45.0); HEMOGLOBIN 9.9 g/dl (12.0-16.0); LYMPHOCYTES # (AUTO) 0.3 X10'3 (1.1-4.8); LYMPHOCYTES % (AUTO) 3.8 % (21-51); MEAN CORPUSCULAR HEMOGLOBIN 31.7 PG (27.0-31.0); MEAN CORPUSCULAR HGB CONC 34.5 g/dL (33.0-36.5); MEAN CORPUSCULAR VOLUME 91.9 FL (78-98); MEAN PLATELET VOLUME 9.4 FL (7.4-10.4); MONOCYTES # (AUTO) 0.6 X10'3 (0-0.9); MONOCYTES % (AUTO) 8.1 % (2-12); NEUTROPHILS # (AUTO) 6.4 X10'3 (1.8-7.7); NEUTROPHILS % (AUTO) 84.9 % (42-75); PLATELET COUNT 157 X10'3 (140-440); RED BLOOD COUNT 3.14 X10'6 (4.20-5.60); RED CELL DISTRIBUTION WIDTH 13.8 % (11.5-14.5); WHITE BLOOD COUNT 7.6 X10'3 (4.5-11.0)
[2022-09-28 06:30] VITALS: BP 165/56
--- NOTE | 2022-09-28 06:47 | NUR ---
Problems reprioritized. Patient report given, questions answered & plan of care reviewed with ALLI Elliott
--- NOTE | 2022-09-28 07:07 | NUR ---
This RN has evaluated and agrees w/the TIRE TRIMMER HAND's physical assessment of this patient.
[2022-09-28] MEDS: K and/or MAG REPLACEMENT MC SCH ×2 (08:00→20:00)
[2022-09-28] MEDS: docusate sodium 100mg/10ml UD cup PEG SCH ×2 (08:28→20:16)
[2022-09-28] MEDS: nystatin 500,000 unit/5ML UD oral suspension PO SCH ×3 (08:28→20:16)
[2022-09-28] MEDS: aspirin 81mg tab.chew PEG SCH (08:29)
[2022-09-28] MEDS: atorvastatin 20mg tablet PEG SCH (08:29)
[2022-09-28] MEDS: HYDROchlorothiazide 12.5mg capsule PEG SCH (08:29)
[2022-09-28] MEDS: citalopram 20mg tablet PEG SCH (08:29)
[2022-09-28] MEDS ORDERED: bisacodyl 10mg suppository rectal RC STA (17:23)
[2022-09-28] MEDS ORDERED: magnesium hydroxide 30ml (MOM) UD suspension PEG PRN (17:25)
[2022-09-28] MEDS ORDERED: bisacodyl 5mg tablet.DR PEG PRN (17:25)
[2022-09-28] MEDS ORDERED: bisacodyl 10mg suppository rectal RC PRN (17:25)
--- NOTE | 2022-09-28 17:35 | NUR ---
Patient declined to have a suppository. Explained the benefits of proceeding with this. Provider notified.
--- NOTE | 2022-09-28 18:29 | NUR ---
Problems reprioritized. Patient report given, questions answered & plan of care reviewed with ALLI Cannon
[2022-09-28 18:30] VITALS: BP 150/72
[2022-09-28] MEDS ORDERED: polyethylene glycol 3350 17gm powd pack PEG SCH (21:00)
[2022-09-28 22:30] VITALS: BP 148/63
[2022-09-28] MEDS: traZODone 50mg tablet PEG SCH (22:57)
[2022-09-28] MEDS: valacyclovir 500mg tablet PEG SCH (22:57)
[2022-09-29 02:00] VITALS: BP 108/72
--- NOTE | 2022-09-29 06:47 | NUR ---
Patient in room PCU 3022. I have received report from Davis REYNOLDS and had the opportunity to ask questions and assume patient care.
[2022-09-29 07:00] VITALS: BP 154/66
[2022-09-29 07:45] LABS: PREALBUMIN 12.6 MG/DL (19-36)
[2022-09-29] MEDS: K and/or MAG REPLACEMENT MC SCH (08:00)
[2022-09-29] MEDS: atorvastatin 20mg tablet PEG SCH (08:33)
[2022-09-29] MEDS: aspirin 81mg tab.chew PEG SCH (08:33)
[2022-09-29] MEDS: nystatin 500,000 unit/5ML UD oral suspension PO SCH (08:34)
[2022-09-29] MEDS: HYDROchlorothiazide 12.5mg capsule PEG SCH (08:34)
[2022-09-29] MEDS: docusate sodium 100mg/10ml UD cup PEG SCH (08:34)
[2022-09-29] MEDS: oxyCODONE/APAP 5-325mg tablet PEG PRN (08:34)
[2022-09-29] MEDS: citalopram 20mg tablet PEG SCH (08:34)
[2022-09-29] MEDS: potassium 20mEq/D5LR 1,000 ML IV SCH (09:52)
[2022-09-29 11:00] VITALS: BP 128/48
[2022-09-29] MEDS ORDERED: NYST1000 PO (11:21)
--- NOTE | 2022-09-29 12:41 | NUR ---
Per EMR pt is discharging today. FRENCH LECTURER requested TF formula to send home with pt. RODNEY already got approval from [facility] to do this. FRENCH LECTURER provided with additional TF formula. Addendum: 09/29/22 at [address] Amended: Links added.
--- NOTE | 2022-09-29 14:00 | NUR ---
Patient discharged home all belongings and discharge instructions sent home with patient. IV removed. Escorted out via wheelchair and left via private vehicle.
== END 2022-09-29 14:00 | disposition home or self-care (01) | DRG 640 ==
LOC: ER 07:30 → ED HOLD 11:11 → PCU 3S 12:31
PROVIDERS: ADMIT Internal Medicine; ATTEND Internal Medicine
PROC: 0DH63UZ Insertion of Feeding Device into Stomach, Percutaneous Approach (ICD-10-PCS; principal; 2022-09-24)
PROC: 0DB78ZX Excision of Stomach, Pylorus, Via Natural or Artificial Opening Endoscopic, Diagnostic (ICD-10-PCS; 2022-09-24)
DX: E86.0 Dehydration (principal); E43 Unspecified severe protein-calorie malnutrition; B37.0 Candidal stomatitis; R13.10 Dysphagia, unspecified; B00.9 Herpesviral infection, unspecified; E78.00 Pure hypercholesterolemia, unspecified; E87.6 Hypokalemia; F32.A Depression, unspecified; L59.8 Other specified disorders of the skin and subcutaneous tissue related to radiation; M54.9 Dorsalgia, unspecified; D50.9 Iron deficiency anemia, unspecified; G89.29 Other chronic pain; K29.70 Gastritis, unspecified, without bleeding; K30 Functional dyspepsia; K59.00 Constipation, unspecified; I10 Essential (primary) hypertension; R62.7 Adult failure to thrive; Y84.2 Radiological procedure and radiotherapy as the cause of abnormal reaction of the patient, or of later complication, without mention of misadventure at the time of the procedure; Z85.89 Personal history of malignant neoplasm of other organs and systems; Z86.73 Personal history of transient ischemic attack (TIA), and cerebral infarction without residual deficits; Z92.3 Personal history of irradiation; Z68.25 Body mass index [BMI] 25.0-25.9, adult; Z88.5 Allergy status to narcotic agent; Z79.899 Other long term (current) drug therapy; Z79.82 Long term (current) use of aspirin; Z85.810 Personal history of malignant neoplasm of tongue; Y92.89 Other specified places as the place of occurrence of the external cause
CPT/HCPCS: 36415; 43239; 43246; 71045; 74176; 80048; 80053; 82607; 82728; 82948; 83540; 83550; 83735; 84100; 84134; 84478; 85025; 85610; 86885; 86900; 86901; 88305; 92508; 92616; 93005; 97161; 97530; 99152; 99153; 99285; A4620; B4087; G0378; J1450; J1885; J2250; J2405; J3010; J3475; J3480; J7030; J7040; Q9963

== ENCOUNTER → 2022-10-30 | Outpatient (CLI) | payer BC, MEDICARE ==
[~2022-10-30] MED LIST changes: +DICL100G30 TOP; -GABA300C PO; +HYDROCHLOROTHIAZIDE PO; +NYST1000 PO; +ONDA4TAB12 PO; -OXYC-145 PO; +PILO5TAB10 PO; -POTA20PA40 PO
[2022-10-30 13:35] LABS: BASOPHILS % (AUTO) 0.3 % (0-1); EOSINOPHILS # (AUTO) 0.1 X10'3 (0-0.9); EOSINOPHILS % (AUTO) 2.1 % (0-6); HEMATOCRIT 32.9 % (35.0-45.0); HEMOGLOBIN 11.1 g/dl (12.0-16.0); LYMPHOCYTES # (AUTO) 0.5 X10'3 (1.1-4.8); LYMPHOCYTES % (AUTO) 8.3 % (21-51); MEAN CORPUSCULAR HEMOGLOBIN 32.4 PG (27.0-31.0); MEAN CORPUSCULAR HGB CONC 33.9 g/dL (33.0-36.5); MEAN CORPUSCULAR VOLUME 95.7 FL (78-98); MEAN PLATELET VOLUME 8.4 FL (7.4-10.4); MONOCYTES # (AUTO) 0.5 X10'3 (0-0.9); NEUTROPHILS # (AUTO) 4.8 X10'3 (1.8-7.7); NEUTROPHILS % (AUTO) 81.3 % (42-75); PLATELET COUNT 226 X10'3 (140-440); RED BLOOD COUNT 3.43 X10'6 (4.20-5.60)
== END | disposition home or self-care (01) ==
LOC: LAB 09:03
PROVIDERS: ATTEND Family Medicine
DX: D64.9 Anemia, unspecified (principal)
CPT/HCPCS: 36415; 85025

== ENCOUNTER 2023-03-17 12:15 | Outpatient (CLI) | payer BC ==
[~2023-03-17 12:15] MED LIST changes: -DICL100G30 TOP; +DICL100G59 TOP
[2023-03-17 12:44] LABS: BASOPHILS % (AUTO) 0.5 % (0-1); EOSINOPHILS # (AUTO) 0.2 X10'3 (0-0.9); EOSINOPHILS % (AUTO) 3.3 % (0-6); HEMATOCRIT 35.4 % (35.0-45.0); LYMPHOCYTES # (AUTO) 0.6 X10'3 (1.1-4.8); LYMPHOCYTES % (AUTO) 9.4 % (21-51); MEAN CORPUSCULAR HEMOGLOBIN 31.9 PG (27.0-31.0); MEAN CORPUSCULAR HGB CONC 33.9 g/dL (33.0-36.5); MEAN CORPUSCULAR VOLUME 94.1 FL (78-98); MEAN PLATELET VOLUME 7.8 FL (7.4-10.4); MONOCYTES # (AUTO) 0.3 X10'3 (0-0.9); MONOCYTES % (AUTO) 5.6 % (2-12); NEUTROPHILS # (AUTO) 5.1 X10'3 (1.8-7.7); NEUTROPHILS % (AUTO) 81.2 % (42-75); PLATELET COUNT 221 X10'3 (140-440); RED BLOOD COUNT 3.76 X10'6 (4.20-5.60); RED CELL DISTRIBUTION WIDTH 14.4 % (11.5-14.5); WHITE BLOOD COUNT 6.3 X10'3 (4.5-11.0)
[2023-03-17 13:07] LABS: ALANINE AMINOTRANSFERASE 76 U/L (12-78); ALBUMIN 4.3 G/DL (3.4-5.0); ALBUMIN/GLOBULIN RATIO 1.3 (1.1-1.5); ALKALINE PHOSPHATASE 98 IU/L (46-116); ANION GAP 6 (8-16); ASPARTATE AMINO TRANSFERASE 56 U/L (10-37); BILIRUBIN,TOTAL 0.6 MG/DL (0.1-1.0); BLOOD UREA NITROGEN 14 MG/DL (7-18); BUN/CREATININE RATIO 16.3 (10.0-20.0); CALCIUM 9.7 MG/DL (8.5-10.1); CHLORIDE 103 MMOL/L (99-107); CREATININE 0.86 MG/DL (0.40-0.90); FREE T4 (FREE THYROXINE) 0.32 NG/DL (0.73-1.40); GLUCOSE 103 MG/DL (70-104); POTASSIUM 3.1 MMOL/L (3.5-5.1); SODIUM 139 MMOL/L (135-145); TOTAL CARBON DIOXIDE 29.7 MMOL/L (24-32); TOTAL PROTEIN 7.7 G/DL (6.4-8.2); eGFR 65 ML/MIN
[2023-03-17 13:11] LABS: THYROID STIMULATING HORMONE 59.82 ulU/ml (0.34-4.50)
== END 2023-03-17 23:59 | disposition home or self-care (01) ==
LOC: LAB 12:15
PROVIDERS: ATTEND Family Medicine
DX: C09.9 Malignant neoplasm of tonsil, unspecified (principal); R53.83 Other fatigue; R63.4 Abnormal weight loss
CPT/HCPCS: 36415; 80053; 82607; 84439; 84443; 85025

== ENCOUNTER 2023-03-25 13:32 | Outpatient (CLI) | payer BC, MEDICARE | END 2023-03-25 23:59 | disposition home or self-care (01) | LOC: RAD 13:32 | PROVIDERS: ATTEND Student in an Organized Health Care Education/Training Program | DX: R13.14 Dysphagia, pharyngoesophageal phase (principal); R13.12 Dysphagia, oropharyngeal phase; R49.0 Dysphonia; Z85.89 Personal history of malignant neoplasm of other organs and systems | CPT/HCPCS: 74230 ==

== ENCOUNTER 2023-03-31 13:51 | Day surgery (SDC) | payer BC, MEDICARE ==
[~2023-03-31] VITALS: Ht 160 cm; Wt 61.8 kg
[2023-03-31 14:15] VITALS: BP 145/87; PULSE 72; RESP 16
[2023-03-31] MEDS ORDERED: fentaNYL/PF 50MCG/1 ML 2ML syringe ONE (14:22)
[2023-03-31] MEDS ORDERED: LIDOcaine Viscous 15ml cup ONE (14:23)
[2023-03-31] MEDS ORDERED: MIDAZolam 1 MG/ML 5ML VIAL ONE (14:23)
[2023-03-31] MEDS ORDERED: LISI10TA27 PO (14:30)
[2023-03-31] MEDS ORDERED: LEVO50TA8 PO (14:30)
[2023-03-31 15:07] VITALS: BP 129/65; PULSE 60; RESP 16; O2SAT 98
[2023-03-31 15:17] VITALS: BP 129/77; PULSE 65; RESP 16; O2SAT 96
[2023-03-31 15:27] VITALS: BP 123/71; PULSE 59; RESP 18; O2SAT 96
[2023-03-31 15:37] VITALS: BP 129/65; PULSE 59; RESP 18; O2SAT 96
== END 2023-03-31 15:52 | disposition home or self-care (01) ==
LOC: GI LAB 13:51
PROVIDERS: ATTEND Internal Medicine Gastroenterology
DX: Z43.1 Encounter for attention to gastrostomy (principal); I10 Essential (primary) hypertension; Z86.73 Personal history of transient ischemic attack (TIA), and cerebral infarction without residual deficits; Z96.653 Presence of artificial knee joint, bilateral; Z96.643 Presence of artificial hip joint, bilateral; Z98.890 Other specified postprocedural states; Z85.21 Personal history of malignant neoplasm of larynx; Z79.899 Other long term (current) drug therapy; Z88.5 Allergy status to narcotic agent
CPT/HCPCS: 43247; 99152; J2250; J3010; J7030; Z7512; A4620; C1889

== ENCOUNTER 2023-06-11 06:54 | Emergency (ER) | payer BC, MEDICARE ==
[~2023-06-11] VITALS: Ht 157.5 cm; Wt 55.0 kg
[~2023-06-11 06:54] MED LIST changes: -HYDROCHLOROTHIAZIDE PO; +LEVO50TA8 PO; +LISI10TA27 PO; -NYST1000 PO; -ONDA4TAB12 PO; -PILO5TAB10 PO; -VALA500T41 PO
[2023-06-11 07:05] VITALS: TEMP 98.6
[2023-06-11 08:28] LABS: BASOPHILS % (AUTO) 0.1 % (0-1); EOSINOPHILS # (AUTO) 0.1 X10'3 (0-0.9); HEMATOCRIT 32.2 % (35.0-45.0); HEMOGLOBIN 11.1 g/dl (12.0-16.0); LYMPHOCYTES # (AUTO) 0.4 X10'3 (1.1-4.8); LYMPHOCYTES % (AUTO) 5.5 % (21-51); MEAN CORPUSCULAR HEMOGLOBIN 32.3 PG (27.0-31.0); MEAN CORPUSCULAR HGB CONC 34.3 g/dL (33.0-36.5); MEAN CORPUSCULAR VOLUME 94.2 FL (78-98); MEAN PLATELET VOLUME 9.1 FL (7.4-10.4); MONOCYTES # (AUTO) 0.5 X10'3 (0-0.9); MONOCYTES % (AUTO) 6.4 % (2-12); NEUTROPHILS # (AUTO) 6.3 X10'3 (1.8-7.7); PLATELET COUNT 132 X10'3 (140-440); RED BLOOD COUNT 3.42 X10'6 (4.20-5.60); RED CELL DISTRIBUTION WIDTH 13.7 % (11.5-14.5); WHITE BLOOD COUNT 7.3 X10'3 (4.5-11.0)
[2023-06-11 08:29] LABS: BILIRUBIN,URINE SMALL (Neg); CLARITY,URINE SLIGHTLY CLOUDY (Clear); COLOR,URINE YELLOW (Yellow); GLUCOSE, URINE NEGATIVE (Neg); KETONES,URINE TRACE mg/dl (Neg); LEUKOCYTE ESTERASE ,URINE NEGATIVE (Neg); NITRITES, URINE NEGATIVE (Neg); OCCULT BLOOD,URINE TRACE-INTACT (Neg); PH,URINE 5.5 (4.8-8.0); PROTEIN,URINE 30 mg/dl (Neg); UROBILINOGEN,URINE 0.2 E.U/dL (0.2-1.0)
[2023-06-11 08:43] LABS: ALBUMIN 3.6 G/DL (3.4-5.0); ANION GAP 12 (8-16); BLOOD UREA NITROGEN 23 MG/DL (7-18); BUN/CREATININE RATIO 26.1 (10.0-20.0); CALCIUM 8.9 MG/DL (8.5-10.1); CHLORIDE 103 MMOL/L (99-107); CREATININE 0.88 MG/DL (0.40-0.90); GLUCOSE 114 MG/DL (70-104); MAGNESIUM 1.9 MG/DL (1.5-2.4); POTASSIUM 3.4 MMOL/L (3.5-5.1); SODIUM 138 MMOL/L (135-145); TOTAL CARBON DIOXIDE 23.3 MMOL/L (24-32); UA COLLECTION TYPE CLN CATCH MIDSTREAM; eCRCL 47 ML/MIN; eGFR 64 ML/MIN
[2023-06-11 08:44] LABS: MUCUS STRANDS MANY /LPF (Neg); SQUAMOUS EPITHELIAL CELL,UR MANY /LPF (FEW)
[2023-06-11 08:45] LABS: CAL OXALATE CRYSTALS 4+ /HPF (NEGATIVE); HYALINE CASTS >30 /LPF (NEGATIVE)
[2023-06-11 08:46] LABS: RBC,URINE 0-2 /HPF (0-2)
[2023-06-11 08:47] LABS: AMORPHOUS URATES 1+; BACTERIA,URINE FEW /HPF (Neg)
[2023-06-11] MEDS ORDERED: iohexol 300mg/ml 100ml inj. ONE (09:16)
[2023-06-11] MEDS ORDERED: DOXY-11 PO (11:00)
[2023-06-11 11:17] VITALS: BP 115/56; PULSE 74; RESP 19; O2SAT 98
== END 2023-06-11 11:08 | disposition home or self-care (01) ==
LOC: ER 06:56
DX: R21 Rash and other nonspecific skin eruption (principal); R51.9 Headache, unspecified; R50.9 Fever, unspecified; E78.00 Pure hypercholesterolemia, unspecified; I10 Essential (primary) hypertension; Z86.73 Personal history of transient ischemic attack (TIA), and cerebral infarction without residual deficits; Z72.89 Other problems related to lifestyle; Z98.890 Other specified postprocedural states; Z79.891 Long term (current) use of opiate analgesic; Z88.8 Allergy status to other drugs, medicaments and biological substances
CPT/HCPCS: 36415; 71260; 74177; 80048; 81001; 83605; 83735; 84145; 85025; 87040; 93005; 99285; J3490; Q9967; 99281

== ENCOUNTER 2023-06-16 09:47 | Outpatient (CLI) | payer BC, MEDICARE ==
[~2023-06-16 09:47] MED LIST changes: +DOXY-11 PO
== END 2023-06-16 23:59 | disposition home or self-care (01) ==
LOC: LAB 09:47
PROVIDERS: ATTEND Student in an Organized Health Care Education/Training Program
DX: C10.8 Malignant neoplasm of overlapping sites of oropharynx (principal); R94.6 Abnormal results of thyroid function studies
CPT/HCPCS: 36415; 84443

== ENCOUNTER → 2023-06-19 | Outpatient (CLI) | payer BC, MEDICARE ==
[2023-06-19 13:06] LABS: BASOPHILS % (AUTO) 0.3 % (0-1); EOSINOPHILS # (AUTO) 0.3 X10'3 (0-0.9); EOSINOPHILS % (AUTO) 3.8 % (0-6); HEMATOCRIT 31.9 % (35.0-45.0); HEMOGLOBIN 10.9 g/dl (12.0-16.0); LYMPHOCYTES # (AUTO) 0.8 X10'3 (1.1-4.8); LYMPHOCYTES % (AUTO) 11.3 % (21-51); MEAN CORPUSCULAR HGB CONC 34.1 g/dL (33.0-36.5); MEAN CORPUSCULAR VOLUME 93.8 FL (78-98); MEAN PLATELET VOLUME 7.9 FL (7.4-10.4); MONOCYTES # (AUTO) 0.4 X10'3 (0-0.9); MONOCYTES % (AUTO) 5.6 % (2-12); NEUTROPHILS # (AUTO) 5.3 X10'3 (1.8-7.7); PLATELET COUNT 267 X10'3 (140-440); RED BLOOD COUNT 3.41 X10'6 (4.20-5.60); RED CELL DISTRIBUTION WIDTH 13.9 % (11.5-14.5); WHITE BLOOD COUNT 6.7 X10'3 (4.5-11.0)
[2023-06-19 13:58] LABS: % IRON SATURATION 27 % (11-46); IRON 69 UG/DL (49-151); TOTAL IRON BINDING CAPACITY 259 UG/DL (259-388)
== END | disposition home or self-care (01) ==
LOC: LAB 12:20
PROVIDERS: ATTEND Family Medicine
DX: D64.9 Anemia, unspecified (principal)
CPT/HCPCS: 36415; 82607; 82746; 83540; 83550; 85025

== ENCOUNTER 2023-08-11 10:26 | Outpatient (CLI) | payer BC, MEDICARE ==
[~2023-08-11 10:26] MED LIST changes: -DOXY-11 PO
[2023-08-11 10:47] LABS: BASOPHILS % (AUTO) 0.4 % (0-1); EOSINOPHILS # (AUTO) 0.2 X10'3 (0-0.9); EOSINOPHILS % (AUTO) 2.6 % (0-6); HEMOGLOBIN 10.9 g/dl (12.0-16.0); LYMPHOCYTES # (AUTO) 0.6 X10'3 (1.1-4.8); LYMPHOCYTES % (AUTO) 9.1 % (21-51); MEAN CORPUSCULAR HGB CONC 33.9 g/dL (33.0-36.5); MEAN CORPUSCULAR VOLUME 94.2 FL (78-98); MEAN PLATELET VOLUME 7.6 FL (7.4-10.4); MONOCYTES # (AUTO) 0.3 X10'3 (0-0.9); NEUTROPHILS # (AUTO) 5.2 X10'3 (1.8-7.7); NEUTROPHILS % (AUTO) 82.9 % (42-75); PLATELET COUNT 195 X10'3 (140-440); RED CELL DISTRIBUTION WIDTH 13.6 % (11.5-14.5); WHITE BLOOD COUNT 6.3 X10'3 (4.5-11.0)
[2023-08-11 11:15] LABS: ALANINE AMINOTRANSFERASE 19 U/L (12-78); ALBUMIN 3.6 G/DL (3.4-5.0); ALKALINE PHOSPHATASE 131 IU/L (46-116); ANION GAP 6 (8-16); ASPARTATE AMINO TRANSFERASE 16 U/L (10-37); BILIRUBIN,TOTAL 0.6 MG/DL (0.1-1.0); BLOOD UREA NITROGEN 15 MG/DL (7-18); BUN/CREATININE RATIO 20.8 (10.0-20.0); CALCIUM 8.6 MG/DL (8.5-10.1); CHLORIDE 105 MMOL/L (99-107); CREATININE 0.72 MG/DL (0.40-0.90); FREE T4 (FREE THYROXINE) 1.05 NG/DL (0.73-1.40); POTASSIUM 3.6 MMOL/L (3.5-5.1); SODIUM 141 MMOL/L (135-145); THYROID STIMULATING HORMONE 3.07 ulU/ml (0.34-4.50); TOTAL CARBON DIOXIDE 29.6 MMOL/L (24-32); TOTAL PROTEIN 7.1 G/DL (6.4-8.2); eGFR 80 ML/MIN
[2023-08-11 11:58] LABS: GLUCOSE 93 MG/DL (70-104)
== END 2023-08-11 23:59 | disposition home or self-care (01) ==
LOC: LAB 10:26
PROVIDERS: ATTEND Family Medicine
DX: E03.9 Hypothyroidism, unspecified (principal); D64.9 Anemia, unspecified
CPT/HCPCS: 36415; 80053; 84439; 84443; 85025

== ENCOUNTER 2023-09-01 06:55 | Day surgery (SDC) | payer BC, MEDICARE ==
[~2023-09-01] VITALS: Ht 157.5 cm; Wt 56.5 kg
[2023-09-01 07:21] VITALS: BP 150/72; PULSE 67; RESP 19
[2023-09-01] MEDS ORDERED: fentaNYL/PF 50MCG/1 ML 2ML syringe ONE (08:45)
[2023-09-01] MEDS ORDERED: diphenhydrAMINE 50 mg/ml inj ONE (08:46)
[2023-09-01] MEDS ORDERED: MIDAZolam 1 MG/ML 5ML VIAL ONE (08:46)
[2023-09-01 09:45] VITALS: BP 175/91; PULSE 74; RESP 21; O2SAT 100
[2023-09-01 09:55] VITALS: BP 171/84; PULSE 70; RESP 15; O2SAT 98
[2023-09-01 10:05] VITALS: BP 178/70; PULSE 69; RESP 16; O2SAT 98
[2023-09-01 10:15] VITALS: BP 163/73; PULSE 85; RESP 14; O2SAT 95
== END 2023-09-01 10:30 | disposition home or self-care (01) ==
LOC: GI LAB 06:55
PROVIDERS: ATTEND Internal Medicine Gastroenterology
DX: Z12.11 Encounter for screening for malignant neoplasm of colon (principal); K57.30 Diverticulosis of large intestine without perforation or abscess without bleeding; Z85.89 Personal history of malignant neoplasm of other organs and systems; Z86.010 Personal history of colon polyps
CPT/HCPCS: 45378; 99152; 99153; J1200; J2250; J3010; J7030; Z7512; A4620

== ENCOUNTER → 2023-11-06 | Outpatient (CLI) | payer BC, MEDICARE | END | disposition home or self-care (01) | LOC: LAB 08:57 | PROVIDERS: ATTEND Nurse Practitioner Family | DX: C10.8 Malignant neoplasm of overlapping sites of oropharynx (principal); E07.9 Disorder of thyroid, unspecified | CPT/HCPCS: 36415; 84443 ==

== ENCOUNTER 2023-12-21 14:48 | Outpatient (CLI) | payer BC, MEDICARE | END 2023-12-21 23:59 | disposition home or self-care (01) | LOC: CARD DIAG 14:48 | PROVIDERS: ATTEND Physician Assistant | DX: I08.8 Other rheumatic multiple valve diseases (principal); I65.23 Occlusion and stenosis of bilateral carotid arteries; R07.2 Precordial pain; R07.9 Chest pain, unspecified; R06.02 Shortness of breath; I10 Essential (primary) hypertension; E78.5 Hyperlipidemia, unspecified; Z86.73 Personal history of transient ischemic attack (TIA), and cerebral infarction without residual deficits | CPT/HCPCS: 93306; 93880 ==

== ENCOUNTER 2024-01-15 06:30 | Inpatient (IN) | payer BC, MEDICARE ==
[2024-01-05 15:34] LABS: BASOPHILS % (AUTO) 0.3 % (0-1); EOSINOPHILS # (AUTO) 0.3 X10'3 (0-0.9); EOSINOPHILS % (AUTO) 4.7 % (0-6); LYMPHOCYTES % (AUTO) 19.2 % (21-51); MEAN CORPUSCULAR HEMOGLOBIN 31.8 PG (27.0-31.0); MEAN CORPUSCULAR HGB CONC 34.4 g/dL (33.0-36.5); MEAN CORPUSCULAR VOLUME 92.4 FL (78-98); MEAN PLATELET VOLUME 8.4 FL (7.4-10.4); MONOCYTES # (AUTO) 0.4 X10'3 (0-0.9); MONOCYTES % (AUTO) 7.2 % (2-12); NEUTROPHILS # (AUTO) 3.7 X10'3 (1.8-7.7); NEUTROPHILS % (AUTO) 68.6 % (42-75); PRE OP HEMATOCRIT 33.2 % (35.0-45.0); PRE OP HEMOGLOBIN 11.4 g/dL (12.0-16.0); PRE OP PLATELET COUNT 174 X10'3 (140-440); PRE OP WHITE BLOOD COUNT 5.4 10'3 (4.8-10.8); RED BLOOD COUNT 3.59 X10'6 (4.20-5.60); RED CELL DISTRIBUTION WIDTH 13.3 % (11.5-14.5)
[2024-01-05 16:04] LABS: ALBUMIN 3.9 G/DL (3.4-5.0); ALBUMIN/GLOBULIN RATIO 1.3 (1.1-1.5); ALKALINE PHOSPHATASE 98 IU/L (46-116); BLOOD UREA NITROGEN 13 MG/DL (7-18); CALCIUM 8.9 MG/DL (8.5-10.1); CHLORIDE 106 MMOL/L (99-107); CREATININE 0.62 MG/DL (0.40-0.90); PRE OP ALT 28 U/L (30-65); PRE OP ANION GAP 8 (8-16); PRE OP AST 17 U/L (10-37); PRE OP BILIRUB, TOTAL 0.5 MG/DL (0.0-1.0); PRE OP GLUCOSE 82 MG/DL (70-104); PRE OP POTASSIUM 3.5 MMOL/L (3.4-5.1); PRE OP SODIUM 143 MMOL/L (135-145); THYROID STIMULATING HORMONE 1.51 ulU/ml (0.34-4.50); TOTAL CARBON DIOXIDE 28.7 MMOL/L (24-32); TOTAL PROTEIN 6.9 G/DL (6.4-8.2); eGFR > 90 ML/MIN
[~2024-01-15] VITALS: Ht 160 cm; Wt 59.0 kg
[2024-01-15] VITALS (29 sets, daily range): BP systolic 128–168; BP diastolic 8–96; PULSE 70–98; RESP 10–18; TEMP 97.2–98.3; O2SAT 88–99
[2024-01-15] MEDS: cefazolin 2gm/D5W 100mL 100 ML IV ONE (05:30)
[2024-01-15] MEDS: tranexamic acid inj. 1,000 MG in normal saline IV soln 100ML IV ONE (05:30)
[~2024-01-15 06:30] MED LIST changes: +FLUT16SP11 BOTHNARES; -LEVO50TA8 PO; +LEVO75TA7 PO; +LIDO700A47 TOP
[2024-01-15] MEDS: vancomycin 1,000mg inj ONE (07:20)
[2024-01-15] MEDS: ketorolac trometh 30MG/ML vial 30 MG/ML VIAL ONE (07:20)
[2024-01-15] MEDS: ROPIVAcaine 0.5% (5mg/ml) 30ml vial ONE (07:20)
[2024-01-15] MEDS: tranexamic acid 100mg/ml inj. ONE (07:22)
[2024-01-15] MEDS: gabapentin 300mg capsule PO ONE (07:22)
[2024-01-15] MEDS: celeCOXIB 100mg capsule PO ONE (07:22)
[2024-01-15] MEDS: oxyCODONE SR 10mg (sust. release) tab PO ONE (07:23)
[2024-01-15] MEDS: famotidine 20mg tablet PO ONE (07:23)
[2024-01-15] MEDS: vancomycin/NS 1 GM in NS 250 ML IV ONE (07:24)
[2024-01-15] MEDS: acetaminophen 325mg tablet PO ONE (07:24)
[2024-01-15] MEDS: metoclopramide 5 mg/ml inj IV ONE (07:25)
[2024-01-15] MEDS: ringers solution, lacted 1,000 ML IV SCH ×2 (07:25→10:20)
[2024-01-15] MEDS ORDERED: fluticasone nasal spray 16GM bottle NS PRN (07:35)
[2024-01-15] MEDS ORDERED: magnesium hydroxide 30ml (MOM) UD suspension PO PRN (07:40)
[2024-01-15] MEDS ORDERED: HYDROmorphone inj. 0.5 MG/0.5 ML DISP.SYRIN IV PRN (07:40)
[2024-01-15] MEDS ORDERED: HYDROcodone/acetaminophen 10/325mg tab PO PRN ×2 (07:40)
[2024-01-15] MEDS ORDERED: ondansetron/PF 4mg/2ml inj IV PRN ×2 (07:40→10:20)
[2024-01-15] MEDS ORDERED: diphenhydrAMINE 25mg capsule PO PRN ×2 (07:40)
[2024-01-15] MEDS ORDERED: bisacodyl 10mg suppository rectal RC PRN (07:40)
[2024-01-15] MEDS ORDERED: naloxone 0.4 mg/ml inj IV PRN (07:40)
[2024-01-15] MEDS: lisinopril 10 MG tablet PO SCH (08:00)
[2024-01-15] MEDS: gabapentin 300mg capsule PO SCH (08:00)
[2024-01-15] MEDS: multivitamins, therapeutics tablet PO SCH (08:00)
[2024-01-15] MEDS ORDERED: ceFAZolin/D5W- 1GM premix 50 ML IV SCH (08:00)
[2024-01-15] MEDS: ascorbic acid 500mg tablet PO SCH (08:00)
[2024-01-15] MEDS: citalopram 20mg tablet PO SCH (08:00)
[2024-01-15] MEDS: atorvastatin 20mg tablet PO SCH (08:00)
[2024-01-15] MEDS ORDERED: vancomycin/NS 1 GM ADD-VANTAGE 250 ML IV SCH (08:00)
[2024-01-15] MEDS: aspirin 325mg tablet PO SCH (08:30)
[2024-01-15] MEDS: BUPIVAcaine/PF 5 mg/ml 10ml ONE (09:14)
[2024-01-15] MEDS: BUPIVACAINE liposomal/PF 13.3 MG/ML vial IM ONE (09:14)
[2024-01-15] MEDS ORDERED: sevoflurane 250ml liquid IH ONE (09:25)
[2024-01-15] MEDS ORDERED: fentaNYL/PF 50MCG/1 ML 2ML syringe ONE (09:50)
[2024-01-15] MEDS ORDERED: acetaminophen 1,000mg/100ml IV 100 ML IV ONE (09:50)
[2024-01-15] MEDS ORDERED: LIDOcaine 2% (20mg/ml) 5ml vial ONE (09:50)
[2024-01-15] MEDS ORDERED: dexamethasone sod phosphate 4mg/ml inj. ONE (09:50)
[2024-01-15] MEDS ORDERED: propofol inj 20 ML IV ONE (09:50)
[2024-01-15] MEDS ORDERED: ondansetron/PF 4mg/2ml inj ONE (09:50)
[2024-01-15] MEDS ORDERED: enalaprilat dihydrate 2.5mg/2ml vial IV PRN (10:20)
[2024-01-15] MEDS ORDERED: hydrALAZINE 20mg/ml inj. IV PRN (10:20)
[2024-01-15] MEDS ORDERED: fentaNYL/PF 50MCG/1 ML 2ML syringe IV PRN ×2 (10:20)
[2024-01-15] MEDS: epiNEPHrine 1 mg/ml inj ONE (15:09)
[2024-01-15] MEDS: cloNIDine hcl/PF 100mcg/ml inj ONE (15:09)
[2024-01-15] MEDS: potassium cl 20mEq in 1/2 NS 1,000 ML IV SCH (15:40)
[2024-01-15] MEDS: TRANEXAMIC ACID IV ONE (15:41)
[2024-01-15] MEDS: NORMAL SALINE IV ONE (15:41)
[2024-01-15] MEDS: ceFAZolin/D5W- 1GM premix 50 ML IV SCH (16:11)
[2024-01-15] MEDS: sennosides 8.6mg tablet PO SCH (20:32)
[2024-01-15] MEDS: vancomycin/NS 1 GM ADD-VANTAGE 250 ML IV SCH (20:41)
[2024-01-15] MEDS ORDERED: traZODone 50mg tablet PO SCH (21:00)
[2024-01-15] MEDS: traZODone 50mg tablet PO SCH (22:01)
[2024-01-16 02:00] VITALS: BP 148/76; PULSE 69; RESP 16; TEMP 97.8; O2SAT 95
[2024-01-16 06:00] VITALS: BP 174/79; PULSE 74; RESP 19; TEMP 97.9; O2SAT 98
[2024-01-16 06:33] LABS: BASOPHILS % (AUTO) 0.2 % (0-1); EOSINOPHILS % (AUTO) 0.1 % (0-6); HEMATOCRIT 29.8 % (35.0-45.0); LYMPHOCYTES # (AUTO) 0.8 X10'3 (1.1-4.8); LYMPHOCYTES % (AUTO) 8.2 % (21-51); MEAN CORPUSCULAR HEMOGLOBIN 31.1 PG (27.0-31.0); MEAN CORPUSCULAR HGB CONC 33.6 g/dL (33.0-36.5); MEAN CORPUSCULAR VOLUME 92.5 FL (78-98); MEAN PLATELET VOLUME 8.4 FL (7.4-10.4); MONOCYTES # (AUTO) 0.6 X10'3 (0-0.9); NEUTROPHILS # (AUTO) 7.9 X10'3 (1.8-7.7); NEUTROPHILS % (AUTO) 85.5 % (42-75); PLATELET COUNT 170 X10'3 (140-440); RED BLOOD COUNT 3.23 X10'6 (4.20-5.60); RED CELL DISTRIBUTION WIDTH 12.9 % (11.5-14.5); WHITE BLOOD COUNT 9.3 X10'3 (4.5-11.0)
[2024-01-16 06:37] LABS: ANION GAP 7 (8-16); CHLORIDE 109 MMOL/L (99-107); POTASSIUM 4.4 MMOL/L (3.5-5.1); SODIUM 142 MMOL/L (135-145); TOTAL CARBON DIOXIDE 26.2 MMOL/L (24-32)
[2024-01-16] MEDS: HYDROmorphone 1 mg/ml syringe IV PRN (07:41)
[2024-01-16 08:00] VITALS: RESP 16; O2SAT 97
[2024-01-16 10:00] VITALS: BP 136/58; PULSE 73; RESP 20; TEMP 98.2; O2SAT 97
[2024-01-16] MEDS: acetaminophen 325mg tablet PO PRN (11:03)
[2024-01-16 16:06] VITALS: RESP 16
[2024-01-16] MEDS ORDERED: celeCOXIB 100mg capsule PO SCH (20:00)
== END 2024-01-16 17:23 | disposition home or self-care (01) | DRG 483 ==
LOC: PAS 06:30 → PAS IN 07:40 → SUR 3N 14:15
PROVIDERS: ADMIT Orthopaedic Surgery; ATTEND Orthopaedic Surgery
PROC: 0LS40ZZ Reposition Left Upper Arm Tendon, Open Approach (ICD-10-PCS; 2024-01-15)
PROC: 3E0T3BZ Introduction of Anesthetic Agent into Peripheral Nerves and Plexi, Percutaneous Approach (ICD-10-PCS; 2024-01-15)
PROC: 0RRK00Z Replacement of Left Shoulder Joint with Reverse Ball and Socket Synthetic Substitute, Open Approach (ICD-10-PCS; principal; 2024-01-15 09:25)
DX: M19.012 Primary osteoarthritis, left shoulder (principal); M75.102 Unspecified rotator cuff tear or rupture of left shoulder, not specified as traumatic; Z88.5 Allergy status to narcotic agent
CPT/HCPCS: 36415; 73020; 80051; 80053; 82948; 84443; 85025; 86885; 86900; 86901; 87081; 97110; 97161; A4565; A4618; A6253; A6449; A7000; C1776; C9290; G0378; J0131; J0171; J0665; J0690; J0735; J1100; J1170; J1885; J2405; J2704; J2765; J2795; J3010; J3370; J3480; J3490; J7120

== ENCOUNTER 2024-02-07 11:47 | Emergency (ER) | payer BC, MEDICARE ==
[~2024-02-07] VITALS: Ht 160 cm; Wt 58.2 kg
[2024-02-07 14:51] VITALS: BP 181/80; PULSE 60; RESP 18; TEMP 97.8; O2SAT 100
== END 2024-02-07 14:55 | disposition home or self-care (01) ==
LOC: ER 11:47
DX: S82.64XA Nondisplaced fracture of lateral malleolus of right fibula, initial encounter for closed fracture (principal); E78.00 Pure hypercholesterolemia, unspecified; I10 Essential (primary) hypertension; G89.29 Other chronic pain; M54.9 Dorsalgia, unspecified; Z88.5 Allergy status to narcotic agent; Z88.6 Allergy status to analgesic agent; Z79.82 Long term (current) use of aspirin; Z79.899 Other long term (current) drug therapy; Z86.73 Personal history of transient ischemic attack (TIA), and cerebral infarction without residual deficits; Z98.890 Other specified postprocedural states; Z85.89 Personal history of malignant neoplasm of other organs and systems; W18.39XA Other fall on same level, initial encounter; Y93.89 Activity, other specified; Y92.89 Other specified places as the place of occurrence of the external cause; Y99.8 Other external cause status; W18.30XA Fall on same level, unspecified, initial encounter
CPT/HCPCS: 29515; 73610; 99283; L3265; L4360; A6446; A6449

== ENCOUNTER 2024-03-08 09:13 | Outpatient (CLI) | payer BC, MEDICARE | END 2024-03-08 23:59 | disposition home or self-care (01) | LOC: LAB 09:13 | PROVIDERS: ATTEND Nurse Practitioner Family | DX: R94.6 Abnormal results of thyroid function studies (principal) | CPT/HCPCS: 36415; 84443 ==

== ENCOUNTER 2024-03-23 09:52 | Outpatient (CLI) | payer BC, MEDICARE ==
[2024-03-21 12:26] LABS: ALANINE AMINOTRANSFERASE 20 U/L (12-78); ALBUMIN/GLOBULIN RATIO 1.3 (1.1-1.5); ALKALINE PHOSPHATASE 119 IU/L (46-116); ANION GAP 8 (8-16); ASPARTATE AMINO TRANSFERASE 18 U/L (10-37); BILIRUBIN,TOTAL 0.6 MG/DL (0.1-1.0); BLOOD UREA NITROGEN 13 MG/DL (7-18); BUN/CREATININE RATIO 21.3 (10.0-20.0); CALCIUM 8.9 MG/DL (8.5-10.1); CHLORIDE 109 MMOL/L (99-107); CREATININE 0.61 MG/DL (0.40-0.90); GLUCOSE 91 MG/DL (70-104); POTASSIUM 3.6 MMOL/L (3.5-5.1); SODIUM 144 MMOL/L (135-145); TOTAL CARBON DIOXIDE 26.8 MMOL/L (24-32); eGFR > 90 ML/MIN
[2024-03-21 12:35] LABS: THYROID STIMULATING HORMONE 0.44 ulU/ml (0.34-4.50)
[2024-03-23] MEDS ORDERED: iohexol 300mg/ml 100ml inj. ONE (11:05)
[2024-03-23] MEDS ORDERED: iohexol 300 MG/1 ML 50ml polymer ONE (11:05)
== END 2024-03-23 23:59 | disposition home or self-care (01) ==
LOC: RAD 09:52
PROVIDERS: ATTEND Nurse Practitioner Family
DX: C10.8 Malignant neoplasm of overlapping sites of oropharynx (principal)
CPT/HCPCS: 36415; 70470; 70492; 71270; 80053; 84443; Q9967

== ENCOUNTER 2024-06-15 09:05 | Outpatient (CLI) | payer BC, MEDICARE | END 2024-06-15 23:59 | disposition home or self-care (01) | LOC: RAD 09:05 | PROVIDERS: ATTEND Family Medicine | DX: M18.11 Unilateral primary osteoarthritis of first carpometacarpal joint, right hand (principal); M79.641 Pain in right hand | CPT/HCPCS: 73130 ==

== ENCOUNTER 2024-06-27 14:47 | Outpatient (CLI) | payer BC | END 2024-06-27 23:59 | disposition home or self-care (01) | LOC: VAS 14:47 | PROVIDERS: ATTEND Family Medicine | DX: R55 Syncope and collapse (principal) | CPT/HCPCS: 93880 ==

== ENCOUNTER 2024-07-04 16:17 | Outpatient (CLI) | payer BC ==
[2024-07-04 16:48] LABS: BASOPHILS % (AUTO) 0.5 % (0-1); EOSINOPHILS # (AUTO) 0.4 X10'3 (0-0.9); HEMATOCRIT 34.8 % (35.0-45.0); HEMOGLOBIN 11.8 g/dl (12.0-16.0); LYMPHOCYTES # (AUTO) 1.1 X10'3 (1.1-4.8); LYMPHOCYTES % (AUTO) 17.3 % (21-51); MEAN CORPUSCULAR HEMOGLOBIN 31.5 PG (27.0-31.0); MEAN CORPUSCULAR HGB CONC 33.8 g/dL (33.0-36.5); MEAN CORPUSCULAR VOLUME 93.3 FL (78-98); MEAN PLATELET VOLUME 8.1 FL (7.4-10.4); MONOCYTES # (AUTO) 0.4 X10'3 (0-0.9); MONOCYTES % (AUTO) 6.7 % (2-12); NEUTROPHILS # (AUTO) 4.2 X10'3 (1.8-7.7); NEUTROPHILS % (AUTO) 68.5 % (42-75); PLATELET COUNT 197 X10'3 (140-440); RED BLOOD COUNT 3.73 X10'6 (4.20-5.60); RED CELL DISTRIBUTION WIDTH 14.7 % (11.5-14.5); WHITE BLOOD COUNT 6.2 X10'3 (4.5-11.0)
[2024-07-04 17:18] LABS: ALANINE AMINOTRANSFERASE 26 U/L (12-78); ALBUMIN 4.5 G/DL (3.4-5.0); ALBUMIN/GLOBULIN RATIO 1.6 (1.1-1.5); ALKALINE PHOSPHATASE 121 IU/L (46-116); ANION GAP 12 (8-16); ASPARTATE AMINO TRANSFERASE 17 U/L (10-37); BILIRUBIN,TOTAL 0.4 MG/DL (0.1-1.0); BLOOD UREA NITROGEN 18 MG/DL (7-18); BUN/CREATININE RATIO 25.7 (10.0-20.0); CALCIUM 8.8 MG/DL (8.5-10.1); CHLORIDE 103 MMOL/L (99-107); CHOL/HDL RATIO 2.3 (0.00-4.99); CHOLESTEROL 144 MG/DL (0-200); GLUCOSE 104 MG/DL (70-104); HDL CHOLESTEROL 63 MG/DL (35-60); LDL CHOLESTEROL 60 MG/DL (50-100); POTASSIUM 3.3 MMOL/L (3.5-5.1); SODIUM 143 MMOL/L (135-145); THYROID STIMULATING HORMONE 24.63 ulU/ml (0.34-4.50); TOTAL CARBON DIOXIDE 28.5 MMOL/L (24-32); TOTAL PROTEIN 7.4 G/DL (6.4-8.2); TRIGLYCERIDES 122 MG/DL (20-135); eGFR 82 ML/MIN
[2024-07-04 17:30] LABS: C-REACTIVE PROTEIN < 0.05 MG/DL (0.0-0.5)
== END 2024-07-04 23:59 | disposition home or self-care (01) ==
LOC: RAD 16:17
PROVIDERS: ATTEND Family Medicine
DX: I10 Essential (primary) hypertension (principal); E03.9 Hypothyroidism, unspecified
CPT/HCPCS: 36415; 80053; 80061; 84443; 85025; 85651; 86140

== ENCOUNTER 2024-07-06 11:43 | Outpatient (CLI) | payer BC | END 2024-07-06 23:59 | disposition home or self-care (01) | LOC: MRI 11:43 | PROVIDERS: ATTEND Family Medicine | DX: I67.82 Cerebral ischemia (principal); R13.0 Aphagia; I10 Essential (primary) hypertension | CPT/HCPCS: 70551 ==

== ENCOUNTER 2024-07-12 08:11 | Outpatient (CLI) | payer BC | END 2024-07-12 23:59 | disposition home or self-care (01) | LOC: RAD 08:11 | PROVIDERS: ATTEND Nurse Practitioner Family | DX: G43.109 Migraine with aura, not intractable, without status migrainosus (principal); R40.4 Transient alteration of awareness | CPT/HCPCS: 95816 ==

== ENCOUNTER 2024-07-13 08:08 | Outpatient (CLI) | payer BC ==
[2024-07-13] MEDS ORDERED: iohexol 300mg/ml 100ml inj. ONE (08:22)
[2024-07-13] MEDS ORDERED: iohexol 300 MG/1 ML 50ml polymer ONE (08:22)
== END 2024-07-13 23:59 | disposition home or self-care (01) ==
LOC: RAD 08:08
PROVIDERS: ATTEND Registered Nurse
DX: I67.82 Cerebral ischemia (principal); C10.8 Malignant neoplasm of overlapping sites of oropharynx; K11.0 Atrophy of salivary gland
CPT/HCPCS: 70470; 70491; 71260; Q9967

== ENCOUNTER 2024-07-25 09:48 | Outpatient (CLI) | payer BC ==
[2024-07-25 10:42] LABS: ALANINE AMINOTRANSFERASE 22 U/L (12-78); ALBUMIN 4.1 G/DL (3.4-5.0); ALBUMIN/GLOBULIN RATIO 1.2 (1.1-1.5); ALKALINE PHOSPHATASE 104 IU/L (46-116); ANION GAP 9 (8-16); ASPARTATE AMINO TRANSFERASE 14 U/L (10-37); BILIRUBIN,TOTAL 0.5 MG/DL (0.1-1.0); BLOOD UREA NITROGEN 16 MG/DL (7-18); BUN/CREATININE RATIO 16.8 (10.0-20.0); CALCIUM 9.2 MG/DL (8.5-10.1); CHLORIDE 105 MMOL/L (99-107); CREATININE 0.95 MG/DL (0.40-0.90); GLUCOSE 106 MG/DL (70-104); POTASSIUM 3.6 MMOL/L (3.5-5.1); SODIUM 145 MMOL/L (135-145); TOTAL PROTEIN 7.5 G/DL (6.4-8.2); eGFR 58 ML/MIN
== END 2024-07-25 23:59 | disposition home or self-care (01) ==
LOC: LAB 09:48
PROVIDERS: ATTEND Registered Nurse
DX: C10.8 Malignant neoplasm of overlapping sites of oropharynx (principal)
CPT/HCPCS: 36415; 80053

== ENCOUNTER 2024-08-16 11:05 | Outpatient (CLI) | payer BC | END 2024-08-16 23:59 | disposition home or self-care (01) | LOC: RAD 11:05 | PROVIDERS: ATTEND Orthopaedic Surgery | DX: M19.011 Primary osteoarthritis, right shoulder (principal); M75.121 Complete rotator cuff tear or rupture of right shoulder, not specified as traumatic | CPT/HCPCS: 73200 ==

== ENCOUNTER 2024-09-12 05:34 | Inpatient (IN) | payer BC ==
[2024-09-06 11:19] LABS: BASOPHILS % (AUTO) 0.6 % (0-1); EOSINOPHILS # (AUTO) 0.2 X10'3 (0-0.9); EOSINOPHILS % (AUTO) 3.1 % (0-6); LYMPHOCYTES # (AUTO) 0.6 X10'3 (1.1-4.8); LYMPHOCYTES % (AUTO) 9.9 % (21-51); MEAN CORPUSCULAR HEMOGLOBIN 32.1 PG (27.0-31.0); MEAN CORPUSCULAR VOLUME 91.8 FL (78-98); MEAN PLATELET VOLUME 7.9 FL (7.4-10.4); MONOCYTES # (AUTO) 0.4 X10'3 (0-0.9); MONOCYTES % (AUTO) 6.7 % (2-12); NEUTROPHILS % (AUTO) 79.7 % (42-75); PRE OP HEMATOCRIT 35.9 % (35.0-45.0); PRE OP HEMOGLOBIN 12.6 g/dL (12.0-16.0); PRE OP PLATELET COUNT 223 X10'3 (140-440); PRE OP WHITE BLOOD COUNT 6.2 10'3 (4.8-10.8); RED BLOOD COUNT 3.91 X10'6 (4.20-5.60); RED CELL DISTRIBUTION WIDTH 12.8 % (11.5-14.5)
[2024-09-06 11:52] LABS: ALBUMIN 4.2 G/DL (3.4-5.0); ALBUMIN/GLOBULIN RATIO 1.3 (1.1-1.5); ALKALINE PHOSPHATASE 110 IU/L (46-116); BLOOD UREA NITROGEN 18 MG/DL (7-18); CALCIUM 9.4 MG/DL (8.5-10.1); CHLORIDE 106 MMOL/L (99-107); CREATININE 0.75 MG/DL (0.40-0.90); PRE OP ALT 18 U/L (30-65); PRE OP ANION GAP 7 (8-16); PRE OP AST 18 U/L (10-37); PRE OP BILIRUB, TOTAL 0.6 MG/DL (0.0-1.0); PRE OP GLUCOSE 97 MG/DL (70-104); PRE OP POTASSIUM 3.8 MMOL/L (3.4-5.1); PRE OP SODIUM 143 MMOL/L (135-145); THYROID STIMULATING HORMONE 3.94 ulU/ml (0.34-4.50); TOTAL CARBON DIOXIDE 30.5 MMOL/L (24-32); TOTAL PROTEIN 7.4 G/DL (6.4-8.2); eGFR 76 ML/MIN
[2024-09-12] VITALS (32 sets, daily range): BP systolic 112–142; BP diastolic 43–101; PULSE 60–82; RESP 13–20; TEMP 97.6–98.4; O2SAT 68–99
[~2024-09-12] VITALS: Ht 160 cm; Wt 63.0 kg
[2024-09-12] MEDS: tranexamic acid 1gm/0.7% sal. 100 ML IV ONE (05:30)
[~2024-09-12 05:34] MED LIST changes: +AMLO5TAB16 PO; -DICL100G59 TOP; -FLUT16SP11 BOTHNARES; +GABA300C PO; -LIDO700A47 TOP; -LISI10TA27 PO; +POTA-192 PO; +TELM1TAB PO
[2024-09-12] MEDS: ceFAZolin 2gm in dextrose, iso 50 ML IV ONE (05:49)
[2024-09-12] MEDS: celeCOXIB 100mg capsule PO ONE (06:07)
[2024-09-12] MEDS: gabapentin 300mg capsule PO ONE (06:08)
[2024-09-12] MEDS: acetaminophen 325mg tablet PO ONE (06:08)
[2024-09-12] MEDS: famotidine 20mg tablet PO ONE (06:08)
[2024-09-12] MEDS: ringers solution, lacted 1,000 ML IV SCH ×2 (06:09→08:15)
[2024-09-12] MEDS: vancomycin/NS 1 GM ADD-VANTAGE 250 ML IV ONE (06:10)
[2024-09-12] MEDS: metoclopramide 5 mg/ml inj IV ONE (06:10)
[2024-09-12] MEDS ORDERED: vancomycin 1,000mg inj ONE (06:51)
[2024-09-12] MEDS: oxyCODONE SR 10mg (sust. release) tab PO ONE (06:59)
[2024-09-12] MEDS ORDERED: BUPIVAcaine/PF 5 mg/ml 10ml ONE (07:07)
[2024-09-12] MEDS ORDERED: BUPIVACAINE liposomal/PF 13.3 MG/ML 10mL vial IM ONE (07:07)
[2024-09-12] MEDS ORDERED: sevoflurane 250ml liquid IH ONE (07:14)
[2024-09-12] MEDS ORDERED: LIDOcaine 2% (20mg/ml) 5ml vial ONE (07:15)
[2024-09-12] MEDS ORDERED: fentaNYL/PF 50MCG/1 ML 2ML syringe ONE (07:15)
[2024-09-12] MEDS ORDERED: midazolam 1 mg/ML 2ml injection ONE (07:15)
[2024-09-12] MEDS ORDERED: propofol inj 20 ML IV ONE (07:15)
[2024-09-12] MEDS ORDERED: acetaminophen 1,000mg/100ml IV 100 ML IV ONE (07:48)
[2024-09-12] MEDS ORDERED: fentaNYL/PF 50MCG/1 ML 2ML syringe IV PRN ×2 (08:15)
[2024-09-12] MEDS ORDERED: hydrALAZINE 20mg/ml inj. IV PRN (08:15)
[2024-09-12] MEDS ORDERED: labetalol 20mg/4ml (5mg/ml) syringe IV PRN (08:15)
[2024-09-12] MEDS ORDERED: ondansetron/PF 4mg/2ml inj IV PRN ×2 (08:15→10:20)
[2024-09-12] MEDS ORDERED: meperidine/PF 25mg/ml syringe IV PRN ×2 (08:15)
--- NOTE | 2024-09-12 08:27 | ANESTHESIA RECORDS ---
Nerve Block Providers to CC CC: NABIL MCDERMOTT MD ~ Diagnosis: Nerve Block requested by: NABIL MCDERMOTT MD Neuraxial/Peripheral Nerve Block requested for Post-operative analgesia by Physician above DIAGNOSIS: Post-operative pain. (Body Area) Shoulder: [ Right ] Arm: [ ] Hand: [ ] Hip: [ ] Knee: [ ] Ankle: [ ] Foot: [ ] Leg: [ ] Abdomen: [ ] Other: [ ] Post-operative pain expected to be/is inadequately managed by oral or IV medicines. Regional anesthetic expected to facilitate rehabilitation and/or discharge from facility. Other:[ _] Procedure Performed: Interscalene: Right Time out Done?: Yes Time of Time out: 07:15 Procedure Details: PROCEDURE DETAILS: Risks, benefits and alternatives explained Informed consent obtained, and patient wishes to proceed Conscious sedation with indicated monitors Patient positioned, pertinent anatomy defined, sterile technique used Needle used: [X ] 3 1/8 inch Stimuplex Ultra 22ga [ ] 4 inch Stimuplex Ultra 20ga [ ] 6 inch Stimuplex Ultra 20ga [ ] 6 inch, Quikbloc over the needle catheter set 20ga [ ] 4 inch Quikbloc over the needle catheter set 20ga [ ]Other: [ ] Loss of twitch @ [__0.5% ]mA [ X] Single Injection [ ] Catheter Ultrasound Guidance Used: [ X] Yes [ ] No Attempts:[_1 ] Medicines injected: [ ]Clonidine Amt:[ ] [ ]Dexamethasone Amt:[ ] [ ]Ropivacaine Amt:[ ] [ X ]Bupivacaine Amt:[__0.5% 20 c.c ] [ ]Lidocaine Amt:[ ] [ X ]Exparel 1.33%:[_10 c.c ] [ ]Epinephrine Amt[ ] [ ]Other: [ ] Intermittent aspiration during local anesthetic administration No symptoms of intraneural or intravenous injection Patient tolerated procedure well Comments 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 Right neck is examined with ultrasound and neck vessels,scalene muscles,interscalene nerve bundle are identified. the nerve bundle is not well organized. Needle move close t nerve bundle and upon stimulation Biceps contractions noted. Local mix is injected after repeated negative aspirations. Spread is noted. Ultrasound image is captured. and documented. STACY BURGESS MD September 12, 2024 08:27
[2024-09-12] MEDS ORDERED: phenylephrine 10mg/ml inj. ONE (08:45)
[2024-09-12] MEDS ORDERED: albumin (Human) 5% 250ml 250 ML IV ONE (08:59)
--- NOTE | 2024-09-12 09:43 | OPERATIVE REPORT ---
Operative Report Operative Report OPERATIVE REPORT Date: 09/12/2257 Attending Surgeon: Naman Machado MD Munitions Handler Supervisor(s): Juan Hall MD Anesthesiologist: Harinder Wooten MD Preoperative Diagnosis(es): Right shoulder cuff tear arthropathy Postoperative Diagnosis(es): Same Procedures Performed: Right reverse [id number] total shoulder arthroplasty Clinical Preamble: The patient presented with severe pain and functional limitation of the right shoulder related to cuff tear arthropathy. The arthritis was associated with superior migration of the proximal humerus and a massive tear of the rotator cuff. We discussed the options of continued conservative management, hemiarthroplasty, and reverse total shoulder arthroplasty with the inherent risks and benefits of each. The patient elected to proceed with a reverse total shoulder arthroplasty. Procedure: Under a combination of regional and general anesthetic, the patient was placed in a beachchair position, and the right arm was prepped, and free-draped in sterile fashion. A surgical time-out was performed. An extended deltopectoral approach was performed through an 8-cm anterior shoulder incision. The axillary nerve was identified and protected. The subscapularis was evaluated and found to be intact. This tendon was elevated subperiosteally off the lesser tuberosity and circumferentially mobilized. Anterior and inferior capsular releases were performed. The supra- and infraspinatus tendons were torn and retracted. The inferior and posterior capsule were released and the anterior capsule was excised. Careful protection of the axillary nerve was maintained as this procedure was performed. The humeral head was delivered through the wound and advanced arthritis was confirmed. The medullary canal of the humerus was entered. The humeral head was then resected in 10 degrees of retroversion. Retractors were placed around the glenoid and the remnants of the labrum were excised. The guidewire was drilled through the base of the glenoid which was then reamed and drilled to accept the 10 degree full wedge metaglen from [employer] Reverse Total Shoulder System. The metaglen was secured with a central screw and 4 locking screws. The 38 mm concentric glenosphere trial was inserted. Retractors were then placed around the humerus, and the metaphysis was prepared with a size 2 reamer. The fins were punched and keel broached. A size 2 trial was placed. The appropriate trial polyethylene was then inserted and the shoulder reduced. Excellent soft-tissue balance and stability of the shoulder was encountered with excellent range of motion as well. The trial implants were removed, and the wound thoroughly irrigated with dilute betadine, irrisept and sterile saline. The final glenosphere was seated on the metaglen superiorly. The humeral stem was impacted into place with morselized cancellous bone from the resected humeral head used to increase the tightness of fit. Liners were again trialed and the final liner was impacted into place on the dry humeral component. The shoulder was again reduced and found to have excellent stability and motion. The wound was irrigated the final time and the subscapularis was repaired with 1-mm Dacron tape through anterior humeral drill holes. The deltopectoral interval was closed with #0 stratafix. The subcutaneous layer was closed with 2-0 Vicryl followed by a 3-0 stratafix subcuticular stitch. Acticoat and sterile dressings were applied. Postoperative radiographs confirmed appropriate position of the implants. The patient was transferred to the hospital bed and brought to the PACU in stable condition. The patient tolerated the procedure well with no complications and approximately 150 mL blood loss. Postoperative Plan: This patient will pursue a standard protocol of passive range of motion with luz, pendulum, and stick exercise. The patient will return to clinic in 2 weeks' time for a wound check and at 6 weeks for a clinical follow up and with repeat radiographs. Addendum: This procedure was of enhanced complexity due to the combined pathology of glenohumeral arthritis and a massive rotator cuff tear. This was optimally treated with a reverse rzxv-epc-svafov total shoulder arthroplasty. Use of this implant requires additional specialized training as well as increased time and work effort. ESTIMATED BLOOD LOSS: 150 cc. TT: None CULTURES: None. Infection control : Laminar flow, Shekhar hoods, IOBAN, double glove, OR discipline, iv ancef + vancomycin on induction, thorough wash at end of surgery including dilute betadine, and irrisept, 1g vanco powder deep wound, silver and PORTIA dressing, minimal dressing changes till wound healed. DVT prophylaxis : Contralateral calf pump intra-op, calf pumps post op, ASA 81 mg daily x 6 weeks, early mobilization. PATHOLOGY: Bone. DRAINS: None IMPLANTS: [employer] Reverse Total Shoulder 10 degree full wedge Baseplate Concentric 38 mm glenosphere Small stem size 2 small +0 poly DISPOSITION: Stable to Recovery Room. An equity sales assistant was required given it was a total shoulder replacement and cannot be done safely or correctly alone, there was no qualified resident or other equity sales assistant available to help. The equity sales assistant helped with proper positioning, draping, manipulation, and retraction of tissues to aid in the safe and accurate completion of the operation. NAMAN MACHADO MD September 12, 2024 09:43
[2024-09-12] MEDS ORDERED: bisacodyl 10mg suppository rectal RC PRN (10:20)
[2024-09-12] MEDS ORDERED: HYDROcodone/acetaminophen 10/325mg tab PO PRN ×2 (10:20)
[2024-09-12] MEDS ORDERED: tranexamic acid inj. 630 MG in normal saline 100ml IV soln 100 ML IV ONE (10:20)
[2024-09-12] MEDS ORDERED: magnesium hydroxide 30ml (MOM) UD suspension PO PRN (10:20)
[2024-09-12] MEDS ORDERED: acetaminophen 325mg tablet PO PRN (10:20)
[2024-09-12] MEDS ORDERED: HYDROmorphone 1 mg/ml syringe IV PRN (10:20)
[2024-09-12] MEDS ORDERED: naloxone 0.4 mg/ml inj IV PRN (10:20)
[2024-09-12] MEDS ORDERED: diphenhydrAMINE 25mg capsule PO PRN ×2 (10:20)
--- NOTE | 2024-09-12 11:39 | RADIOLOGY REPORT ---
EXAM: DI SHOULDER LTD 1 VIEW ONLY CLINICAL INDICATION: POST OP TECHNIQUE: DI SHOULDER LTD 1 VIEW ONLY Comparison: DI SHOULDER LTD 1 VIEW ONLY on DOS: 01/15/24 FINDINGS/IMPRESSION: Right total shoulder arthroplasty.
[2024-09-12] MEDS: potassium cl 20mEq in 1/2 NS 1,000 ML IV SCH (13:47)
[2024-09-12] MEDS: tranexamic acid inj. 630 MG in normal saline 100ml IV soln 93.7 ML IV ONE (15:07)
[2024-09-12] MEDS: oxyCODONE IR 5mg (immed. release) tablet PO PRN (18:53)
[2024-09-12] MEDS: ceFAZolin/D5W- 1GM premix 50 ML IV SCH (18:54)
[2024-09-12] MEDS: sennosides 8.6mg tablet PO SCH (20:48)
[2024-09-12] MEDS: vancomycin/NS 1 GM ADD-VANTAGE 250 ML IV SCH (20:48)
[2024-09-12] MEDS: HYDROmorphone inj. 0.5 MG/0.5 ML DISP.SYRIN IV PRN (22:14)
[2024-09-13 02:00] VITALS: BP 133/53; PULSE 78; RESP 16; TEMP 99.3; O2SAT 96
[2024-09-13] MEDS: oxyCODONE IR 5mg (immed. release) tablet PO PRN (04:36)
[2024-09-13 05:27] LABS: BASOPHILS % (AUTO) 0.3 % (0-1); EOSINOPHILS # (AUTO) 0.2 X10'3 (0-0.9); EOSINOPHILS % (AUTO) 3.1 % (0-6); HEMATOCRIT 30.3 % (35.0-45.0); HEMOGLOBIN 10.4 g/dl (12.0-16.0); LYMPHOCYTES # (AUTO) 0.7 X10'3 (1.1-4.8); LYMPHOCYTES % (AUTO) 9.5 % (21-51); MEAN CORPUSCULAR HEMOGLOBIN 31.7 PG (27.0-31.0); MEAN CORPUSCULAR HGB CONC 34.3 g/dL (33.0-36.5); MEAN CORPUSCULAR VOLUME 92.5 FL (78-98); MEAN PLATELET VOLUME 8.4 FL (7.4-10.4); MONOCYTES # (AUTO) 0.5 X10'3 (0-0.9); MONOCYTES % (AUTO) 6.7 % (2-12); NEUTROPHILS # (AUTO) 5.7 X10'3 (1.8-7.7); NEUTROPHILS % (AUTO) 80.4 % (42-75); PLATELET COUNT 155 X10'3 (140-440); RED BLOOD COUNT 3.28 X10'6 (4.20-5.60); RED CELL DISTRIBUTION WIDTH 12.4 % (11.5-14.5); WHITE BLOOD COUNT 7.1 X10'3 (4.5-11.0)
[2024-09-13 05:46] LABS: ANION GAP 7 (8-16); CHLORIDE 107 MMOL/L (99-107); POTASSIUM 3.6 MMOL/L (3.5-5.1); SODIUM 140 MMOL/L (135-145); TOTAL CARBON DIOXIDE 25.9 MMOL/L (24-32)
[2024-09-13 06:00] VITALS: BP 134/56; PULSE 80; RESP 18; TEMP 98.8; O2SAT 96
--- NOTE | 2024-09-13 06:35 | PROGRESS NOTE ---
Progress Note Orthopedic Ortho Post Op Day #: 1 Follow Up Progress Note Joints Progress Note Date: 09/13/2024 Subjective: Patient doing well No acute events overnight BM?: N Tolerating Diet?: Y Pain Well Controlled?: Y Progressing with PT?: Y Urrutia Catheter?: N Drain?: N SCDs? On Objective: Right Upper extremity: Fingers warm, well perfused, rapid cap refill 2+ radial pulses Motor function: fires thumb flexor/extensor, finger flexors/extensors, interossei Sensory function: sensation intact to light touch in axillary,. median, ulnar, radial nerve distributions. Dressing: Clean, dry, and intact, no strikethrough IMAGING Ap shoulder indicates well positioned stable right reverse total shoulder replacement without acute abnormality Assesment and Plan: POD#1 status post right reverse TSA, doing well -Post op H&H stable -PT/OT -Joints pain control protocol -DVT prophylaxis: SCD's, ASA 325mg daily x 6 weeks -Weight bearing status: as tolerated -Post-op XR completed -Abx: 24h vanc/ancef in process Diet: ADAT -Urrutia: per protocol -Drain: none -Discharge planning consult Naman Machado MD Central Line/PICC still needed: N\A Urrutia Catheter still needed?: N\A Objective Vital Signs Date Time Temp Pulse Resp B/P (MAP) Pulse Ox O2 Delivery O2 Flow Rate FiO2 09/13/24 05:36 16 09/13/24 02:00 99.3 78 133/53 (79) 96 Room Air 09/12/24 15:45 1.0 Result Diagram: 09/13/24 0454 09/13/24 0454 NAMAN MACHADO MD September 13, 2024 06:35
--- NOTE | 2024-09-13 06:38 | DISCHARGE SUMMARY ---
Discharge Summary Providers to CC ~ Discharge Summary Admission Diagnosis: R rotator cuff arthropathy Hospital Course DATE OF ADMISSION: DATE OF DISCHARGE: Discharge Diagnosis\Comment: Same Operations\Procedures: Right reverse TSA Consultants: None Complications: None Condition on DC: Stable Continued Medications: Amlodipine Besylate (Amlodipine Besylate) 5 Mg Tablet 1 TAB PO DAILY Aspirin (Aspirin EC) 81 Mg Tablet.dr 1 TAB PO NOON Atorvastatin Calcium* (Lipitor*) 40 Mg Tablet 1 TAB PO NOON Citalopram Hydrobromide (Celexa) 20 Mg Tablet 1 TAB PO NOON Gabapentin (Neurontin) 300 Mg Capsule 300 MG PO BID PRN for pain, CAP Levothyroxine Sodium (Levothyroxine Sodium) 75 Mcg Tablet 1 TAB PO DAILY for 30 Days, #30 TAB 0 Refills Potassium Chloride (Klor-Con) 10 Meq Tab.prt.sr 1 TAB PO DAILY, TAB Telmisartan/Hydrochlorothiazid (Telmisartan-Hctz 80-12.5 mg Tb) 80 Mg-12.5 Mg Tablet 1 TAB PO DAILY Tramadol HCl (Tramadol HCl) 50 Mg Tablet 1 TABLET PO Q4H PRN for pain TAKES IN THE AFTERNOON Trazodone HCl (Trazodone HCl) 100 Mg Tablet 1 TAB PO HS PRN for sleep Discharge Summary: The patient was admitted for surgical treatment of right shoulder arthritis. They received reverse shoulder replacement and the procedure was tolerated well by the patient without complications. Post-operatively thier pain was managed via oral pain medication which managed pain well. They worked with physical therapy to ambulate without an assistive device and is cleared to return home and continue their rehabilitation. Their other medical conditions were managed throughout their admission without difficulty. They have remained stable and states that they are ready to return home and is comfortable with the plan for future care. *Problems/Diagnosis: (1) Primary osteoarthritis, right shoulder Status: Resolved Total Time Spent on D/C: Up to 30 Minutes NABIL MCDERMOTT MD September 13, 2024 06:38
[2024-09-13] MEDS ORDERED: CLONIDINE IU ONE (06:50)
[2024-09-13] MEDS ORDERED: [UNRECOGNIZED DRUG - OTHER] IU ONE (06:50)
[2024-09-13] MEDS ORDERED: ROPIVACAINE IU ONE (06:50)
[2024-09-13] MEDS ORDERED: KETOROLAC TROMETH IU ONE (06:50)
[2024-09-13 08:15] VITALS: RESP 16
[2024-09-13] MEDS: aspirin 325mg tablet PO SCH (08:21)
[2024-09-13 10:00] VITALS: BP 139/57; PULSE 63; RESP 16; TEMP 98.4; O2SAT 98
[2024-09-13 18:30] VITALS: BP 146/60; PULSE 79; RESP 18; TEMP 98.1; O2SAT 96
[2024-09-13] MEDS ORDERED: celeCOXIB 100mg capsule PO SCH (20:00)
== END 2024-09-13 19:10 | disposition home or self-care (01) | DRG 483 ==
LOC: PAS 05:34 → PAS IN 10:21 → ORTHO 4S 13:09
PROVIDERS: ADMIT Orthopaedic Surgery; ATTEND Orthopaedic Surgery
PROC: 3E0T3BZ Introduction of Anesthetic Agent into Peripheral Nerves and Plexi, Percutaneous Approach (ICD-10-PCS; 2024-09-12)
PROC: 0RRJ00Z Replacement of Right Shoulder Joint with Reverse Ball and Socket Synthetic Substitute, Open Approach (ICD-10-PCS; principal; 2024-09-12 07:14)
DX: M19.011 Primary osteoarthritis, right shoulder (principal); I10 Essential (primary) hypertension; M75.121 Complete rotator cuff tear or rupture of right shoulder, not specified as traumatic; Z88.5 Allergy status to narcotic agent; Z86.73 Personal history of transient ischemic attack (TIA), and cerebral infarction without residual deficits
CPT/HCPCS: Z7506; Z7508; 36415; 73020; 80051; 80053; 82948; 84443; 85025; 86885; 86900; 86901; 87081; 97110; 97116; 97161; A4565; A4615; A4618; A6253; A6449; A7000; A9272; C1776; G0378; J0131; J0665; J0666; J0690; J1100; J1171; J2003; J2250; J2371; J2405; J2704; J2765; J3010; J3370; J3480; J3490; J7120; P9045

== ENCOUNTER 2024-10-20 11:35 | Outpatient (CLI) | payer BC ==
[~2024-10-20 11:35] MED LIST changes: +iohexol 300mg/ml 100ml inj. ONE
[2024-10-20 12:24] LABS: ALANINE AMINOTRANSFERASE 21 U/L (12-78); ALBUMIN 3.9 G/DL (3.4-5.0); ALBUMIN/GLOBULIN RATIO 1.3 (1.1-1.5); ALKALINE PHOSPHATASE 117 IU/L (46-116); ANION GAP 11 (8-16); BILIRUBIN,TOTAL 0.5 MG/DL (0.1-1.0); BLOOD UREA NITROGEN 19 MG/DL (7-18); CHLORIDE 106 MMOL/L (99-107); GLUCOSE 88 MG/DL (70-104); SODIUM 144 MMOL/L (135-145); TOTAL CARBON DIOXIDE 27.3 MMOL/L (24-32); TOTAL PROTEIN 6.9 G/DL (6.4-8.2); eGFR > 90 ML/MIN
[2024-10-20 12:41] LABS: ASPARTATE AMINO TRANSFERASE 31 U/L (10-37); POTASSIUM 4.6 MMOL/L (3.5-5.1)
--- NOTE | 2024-10-20 16:18 | RADIOLOGY REPORT ---
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 RADIATION DOSE: CTDIvol: 46 mGy, DLP: 774 mGy*cm FINDINGS: There is no intracranial hemorrhage. There is no extra-axial fluid, mass, mass effect or midline shif t. The ventricles are midline and normal in size. Basilar cisterns are patent. There are mild periven tricular and subcortical white matter chronic microvascular ischemic changes. Mild global cerebral v olume loss. There is no abnormal intracranial enhancement. The paranasal sinuses and mastoids are well-pneumatized. Imaged portion of the orbits are unremarkabl e. IMPRESSION: 1. No intracranial hemorrhage or mass effect.
--- NOTE | 2024-10-21 08:18 | RADIOLOGY REPORT ---
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 Coronal and sagittal reformations were performed by the technologist. 3D image postprocessing was performed on a dedicated workstation and images were used for interpretat ion and reporting. Radiation Dose : CT Dose: CTDI volume is 13.6 mGy. Dose-length product is 512.1 mGy*cm Findings: Lower neck: Normal thyroid. Lungs: No focal consolidation. Heart/Vascular Structures: Cardiomegaly. Coronary artery calcifications. Vascular calcifications of t he aorta. Lymph Nodes: No adenopathy Pleura: No pleural effusion or significant pneumothorax. Musculoskeletal: No acute osseous abnormality. Bilateral shoulder arthroplasty. Soft tissues: Normal. Upper abdomen: Limited portions of the upper abdomen are unremarkable. IMPRESSION: No evidence of acute intrathoracic pathology identified.
--- NOTE | 2024-10-21 10:46 | RADIOLOGY REPORT ---
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 RADIATION DOSE: CTDIvol: 14.4 mGy, DLP: 448.8 mGy*cm FINDINGS: There is no evidence of cervical mass lesion, pathologically enlarged lymph nodes or fluid collection . The fat planes of the neck appear intact. The airway and larynx are unremarkable. The parotid, submandibular and thyroid glands are unremarkable. The vascular structures of the neck appear patent. The visualized lung apices are clear. The limited visualized portions of the brain are unremarkable. The osseous structures are unremarkable. Area of interest marker appears to correspond to normal right internal jugular vein. IMPRESSION: No evidence of cervical mass lesion, pathologically enlarged lymph nodes or fluid collection. Area of interest marker appears to correspond to normal right internal jugular vein.
== END 2024-10-20 23:59 | disposition home or self-care (01) ==
LOC: RAD 11:35
PROVIDERS: ATTEND Registered Nurse
DX: I67.82 Cerebral ischemia (principal); C10.8 Malignant neoplasm of overlapping sites of oropharynx; G31.9 Degenerative disease of nervous system, unspecified
CPT/HCPCS: 36415; 70460; 70491; 71260; 80053; Q9967

== ENCOUNTER 2024-11-03 10:10 | Outpatient (CLI) | payer BC ==
[~2024-11-03 10:10] MED LIST changes: -iohexol 300mg/ml 100ml inj. ONE
[2024-11-03 11:25] LABS: FREE T4 (FREE THYROXINE) 0.62 NG/DL (0.73-1.40); THYROID STIMULATING HORMONE 15.07 ulU/ml (0.34-4.50)
== END 2024-11-03 23:59 | disposition home or self-care (01) ==
LOC: LAB 10:10
PROVIDERS: ATTEND Family Medicine
DX: E03.9 Hypothyroidism, unspecified (principal)
CPT/HCPCS: 36415; 84439; 84443

== ENCOUNTER 2024-11-23 09:23 | Outpatient (CLI) | payer BC | END 2024-11-23 23:59 | disposition home or self-care (01) | LOC: LAB 09:23 | PROVIDERS: ATTEND Nurse Practitioner Family | DX: C10.8 Malignant neoplasm of overlapping sites of oropharynx (principal); R94.6 Abnormal results of thyroid function studies | CPT/HCPCS: 36415; 84443 ==

== ENCOUNTER 2024-12-23 09:40 | Outpatient (CLI) | payer BC | END 2024-12-23 23:59 | disposition home or self-care (01) | LOC: RAD 09:40 | PROVIDERS: ATTEND Family Medicine | DX: E03.9 Hypothyroidism, unspecified (principal) | CPT/HCPCS: 36415; 84439; 84443 ==

== ENCOUNTER 2025-01-17 13:01 | Emergency (ER) | payer BC, OTHER ==
[~2025-01-17] VITALS: Ht 160 cm; Wt 62.7 kg
[2025-01-17 13:03] VITALS: BP 187/53; PULSE 69; TEMP 98; O2SAT 97
--- NOTE | 2025-01-17 13:59 | RADIOLOGY REPORT ---
CLINICAL INDICATION: fall LT. HIP TECHNIQUE: DI HIP UNILATERAL 2 VIEWS, DI KNEE LIMITED (AP/LAT) Comparison: DI HIP UNILATERAL 2 VIEWS on DOS: 07/20/23 FINDINGS/IMPRESSION: : There is no evidence of acute fracture or dislocation. Soft tissues are unremarkable. Bilateral hip arthroplasty. Left knee arthroplasty.
--- NOTE | 2025-01-17 13:59 | RADIOLOGY REPORT ---
Indication: Shoulder Pain RT. Technique: DI SHOULDER, COMPLETE (MIN 2 VWS)SHOULDERCM Comparison: 09/12/2024 FINDINGS/IMPRESSION: The right shoulder prosthesis appears slightly inferior/ anteriorly subluxed. Correlate for dislocation. No periprosthetic fracture. Moderate right AC joint arthrosis. Postsurgical changes in the right neck/ thyroid bed.
[2025-01-17] MEDS: ketorolac trometh 15mg/ml vial 15 MG/ML ML IM ONE (14:04)
[2025-01-17 14:13] VITALS: RESP 16
--- NOTE | 2025-01-17 14:17 | Physician Documentation ---
History of Present Illness ~ Chief Complaint: Shoulder pain Stated Complaint: FALL SHOULDER PAIN Time Seen by MD: 13:26 Primary Medical Doctor: Dr. Luis Walker HPI This 74-year-old female was at work today when she tripped and fell on a cord injuring her right shoulder which has recently been replaced hand her left hip and left knee.. She has increased pain in her shoulder mostly but wants her other joints checked. denies any head injury. Tetanus within 5 years?: Yes Medication Reconciliation Allergies: Coded Allergies: hydrocodone (Unverified Adverse Reaction, Severe, NAUSEA, VOMITING, 09/09/24) morphine (Unverified Adverse Reaction, Intermediate, FUENTES, N/V FOR DAYS, 09/09/24) Scheduled Amlodipine Besylate (Amlodipine Besylate), 1 TAB PO DAILY, (Reported) Aspirin (Aspirin EC), 1 TAB PO NOON, (Reported) Atorvastatin Calcium* (Lipitor*), 1 TAB PO NOON, (Reported) Citalopram Hydrobromide (Celexa), 1 TAB PO NOON, (Reported) Levothyroxine Sodium (Levothyroxine Sodium), 1 TAB PO DAILY, (Reported) Potassium Chloride (Klor-Con), 1 TAB PO DAILY, (Reported) Telmisartan/Hydrochlorothiazid (Telmisartan-Hctz 80-12.5 mg Tb), 1 TAB PO DAILY, (Reported) Scheduled PRN Gabapentin (Neurontin), 300 MG PO BID PRN for pain, (Reported) Tramadol HCl (Tramadol HCl), 1 TABLET PO Q4H PRN for pain, (Reported) Trazodone HCl (Trazodone HCl), 1 TAB PO HS PRN for sleep, (Reported) Past Medical History Past Medical History: CVA/TIA/Stroke, Cataracts, High Cholesterol, Hypertension, Chronic Back Pain, Extremity Fracture, *CANCER* Past Surgical History: orthopedic surgeries Other Past Surgical History: cataract surgery Alcohol Use: Rarely Drug Use: none Lives In: Home Occupation: employed Review of Systems All Other Systems at this time: Reviewed and Negative ROS As stated above in the HPI, otherwise all systems are reviewed and negative. Physical Exam Vital Signs: Temperature: 98.0, Source: Temporal, Heart Rate: 69, Respiratory Rate: 16, BP: 187/53, Pulse Oximetry: 97, Weight: 62.730 Oxygen Flow Rate: 0 Physical Exam General: Alert, no apparent distress. HEENT: PERRL, EOMI, no injection, moist mucous membranes. Extremities: Normal range of motion, no deformity. Positive drop-arm test on the right shoulder and mild tenderness in the left hip Neurologic: Oriented x4. Psychiatric: Normal mood and affect. Skin: Normal color, warm and dry. No edema, no ecchymosis. Progress Results/Orders Results/Orders Orders - KEITH [facility] PICK UP AND DELIVERY DRIVER Shoulder, Complete (Min 2 Vws) (01/17/25 13:07) Hip Unilateral 2 Views (01/17/25 13:27) Knee Limited (Ap/Lat) (01/17/25 13:27) Completed Orders - KEITH [facility] PICK UP AND DELIVERY DRIVER Shoulder, Complete (Min 2 Vws) (01/17/25 13:07) Hip Unilateral 2 Views (01/17/25 13:27) Knee Limited (Ap/Lat) (01/17/25 13:27) Ketorolac Trometh 15mg/Ml Vial (Toradol (01/17/25 13:55) Medications Received in ER Medications (Trade) Dose Ordered Sig/Herbert Route PRN Reason Start Time Stop Time Status Last Admin Dose Admin (Toradol injection) 15 mg ONCE ONCE IM 01/17/25 13:55 01/17/25 13:56 DC 01/17/25 14:04 15 MG Vital Signs 01/17/25 01/17/25 13:03 14:04 Temp 98.0 Pulse 69 Resp 16 16 B/P (MAP) 187/53 Pulse Ox 97 O2 Flow Rate 0 Medical Decision Making Findings Patient's x-ray looked abnormal initially via my interpretation and the radiologist's. However I ran the case by orthopedic surgeon Dr. Guzman he said to place the patient in his splint and have her follow up with her surgeon. When I compared her previous shoulder x-ray to today's it appeared consistent without differentiation Her other x-rays were otherwise unremarkable Differential Dx:Considerations: Include: AC separation, Adhesive capsulitis, ar thritis, Bicipital tendonitis, Calcific tendonitis, Cervical disc disease, Contusion, Dislocation, Fracture: Humerus, Fracture: Scapula, Fracture: Clavicle, Gallbladder Disease, Hematoma, Impingement syndrome, Myocardial infarction, Neurovascular Injury, Rotator cuff injury, SC dislocation, Sprain, Subacromial bursitis, other Departure Disposition: HOME / SELF CARE / HOMELESS Impression: Primary Impression: Shoulder pain Additional Impression: Fall Referrals: NO PRIMARY CARE PROVIDER (PCP) Signature Scribe Signature: y Attestation: Scribed for Keith Fam [employer] Hands Mounter by Keith Reddy NP . 01/17/25 14:18 KEITH FAM NP Jan 17, 2025 14:17
== END 2025-01-17 14:24 | disposition home or self-care (01) ==
LOC: ER 13:01
DX: M25.511 Pain in right shoulder (principal); I10 Essential (primary) hypertension; G89.29 Other chronic pain; E78.00 Pure hypercholesterolemia, unspecified; Z86.73 Personal history of transient ischemic attack (TIA), and cerebral infarction without residual deficits; Z88.5 Allergy status to narcotic agent; Z79.899 Other long term (current) drug therapy; Z79.82 Long term (current) use of aspirin; W01.0XXA Fall on same level from slipping, tripping and stumbling without subsequent striking against object, initial encounter; Y93.89 Activity, other specified; Y92.89 Other specified places as the place of occurrence of the external cause; Y99.8 Other external cause status
CPT/HCPCS: 73030; 73502; 73560; 96372; 99284; J1885; A4565

== ENCOUNTER 2025-04-03 08:45 | Outpatient (CLI) | payer BC ==
[2025-04-03] MEDS ORDERED: iohexol 300mg/ml 100ml inj. ONE (09:18)
--- NOTE | 2025-04-03 11:24 | RADIOLOGY REPORT ---
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 Radiation Dose Information: CT Dose: CTDI volume is 51 mGy. Dose-length product is 809 mGy*cm The dose indicators for CT are the volume Computed Tomography (CT) Dose Index (CTDIvol) and the Dose Length Product (DLP), and are measured in units of mGy and mGy-cm, respectively. These indicators are not patient dose, but values generated from the CT scanner acquisition factors. The report includes radiation exposure data for exposures received during this examination. Findings: Scattered hypoattenuation in the periventricular and subcortical white matter, suggestive of chronic microvascular disease. The ventricles and sulci are mildly enlarged, compatible with generalized parenchymal volume loss. There is no mass- effect, hemorrhage, midline shift, or abnormal extra-axial fluid collection visible. No calvarial fracture. No abnormal parenchymal enhancement. Essentially clear visualized paranasal sinuses. Mastoid air cells are clear. IMPRESSION: No acute intracranial hemorrhage or mass effect. No abnormal enhancement within the brain parenchyma. However, small metastatic lesions can be occult on CT. Recommend MRI for further evaluation if possible.
--- NOTE | 2025-04-03 11:41 | RADIOLOGY REPORT ---
CT Chest without intravenous contrast INDICATION: NEOPLASM TECHNIQUE: Pre and postcontrast Multidetector spiral CT of the chest was performed from the lung apices to the upper abdomen. Axial, coronal and sagittal multiplanar reformats were performed. Radiation Dose : 1. Chest: CTDI volume is 14 mGy. Dose-length product is 948 mGy*cm The dose indicators for CT are the volume Computed Tomography (CT) Dose Index (CTDIvol) and the Dose Length Product (DLP), and are measured in units of mGy and mGy-cm, respectively. These indicators are not patient dose, but values generated from the CT scanner acquisition factors. The report includes radiation exposure data for exposures received during this examination. Comparison: CT CT CHEST W/ IV CONTRAST on DOS: 10/20/24, CT CT CHEST W/ IV CONTRAST on DOS: 07/13/24, CT CT CHEST on DOS: 03/23/24 Findings: Lower neck: Normal thyroid. Lungs: No focal consolidation. Heart/Vascular Structures: Cardiomegaly. Coronary artery calcifications. Vascular calcifications of the aorta. Lymph Nodes: No adenopathy Pleura: No pleural effusion or significant pneumothorax. Musculoskeletal: No acute osseous abnormality. Degenerative changes of the spine. Multiple chronic healing left rib fractures. Bilateral shoulder arthroplasty. Soft tissues: 5.1 cm cyst in the right epicardial fat. Upper abdomen: Limited portions of the upper abdomen are unremarkable. IMPRESSION: No acute or suspicious thoracic finding. 5.1 cm cyst in the right epicardial fat. This likely represents a benign pericardial cyst. Radiation optimization: All CT scans at this facility use at least one of these dose optimization techniques: automated exposure control mA and/or kV adjustment per patient size (includes targeted exams where dose is matched to clinical indication) or iterative reconstruction.
--- NOTE | 2025-04-03 11:51 | RADIOLOGY REPORT ---
Procedure: CT CT NECK SOFT TISSUES Reason for study/Clinical History: NEOPLASM Comparison Study: CT CT NECK SOFT TISSUES W/ IV CONTRAST on DOS: 10/20/24 Exam Date: 04/03/2025 09:46 AM Radiation Dose Information: CT Dose: CTDI volume is 15.7 mGy. Dose-length product is 4 9 mGy*cm [Statement][Radimetrics Dose Report] Technique: CT of the neck was performed with and without intravenous contrast with multiplanar images reviewed. 100 cc of Omnipaque 300 injected intravenously. Findings: Aerodigestive Tract: No masslike density in the aerodigestive tract. Lymph Nodes: Postsurgical changes in the right neck near the carotid space. No radiographically pathologic adenopathy. Salivary Glands: Normal. Thyroid Gland: Unremarkable. Visualized Brain and Orbits: No acute process. Paranasal sinus and mastoid air cells: Essentially clear paranasal sinuses. Mastoid air cells are clear. Osseous Structures and Soft Tissues: No aggressive osseous lesions. Vascular: Grossly patent although its evaluation is limited due to suboptimal opacification. Lung Apices: Clear. IMPRESSION: Slightly limited study due to suboptimal opacification. Postsurgical changes in the right neck. No definite neck mass or suspicious lymphadenopathy.
== END 2025-04-03 23:59 | disposition home or self-care (01) ==
LOC: RAD 08:45
PROVIDERS: ATTEND Nurse Practitioner Family
DX: S22.32XA Fracture of one rib, left side, initial encounter for closed fracture (principal); C10.8 Malignant neoplasm of overlapping sites of oropharynx; I51.7 Cardiomegaly; I25.10 Atherosclerotic heart disease of native coronary artery without angina pectoris; M47.814 Spondylosis without myelopathy or radiculopathy, thoracic region; X58.XXXA Exposure to other specified factors, initial encounter; Y93.89 Activity, other specified; Y92.89 Other specified places as the place of occurrence of the external cause; Y99.8 Other external cause status; Z96.612 Presence of left artificial shoulder joint; Z96.611 Presence of right artificial shoulder joint
CPT/HCPCS: 36415; 70470; 70490; 71270; 84443; Q9967

== ENCOUNTER 2025-04-27 10:24 | Outpatient (CLI) | payer BC ==
[2025-04-27 12:25] LABS: CREATININE 0.79 MG/DL (0.40-0.90); TOTAL CARBON DIOXIDE 28.7 MMOL/L (24-32); eGFR 72 ML/MIN
== END 2025-04-27 23:59 | disposition home or self-care (01) ==
LOC: RAD 10:24
PROVIDERS: ATTEND Student in an Organized Health Care Education/Training Program
DX: C10.8 Malignant neoplasm of overlapping sites of oropharynx (principal); R94.6 Abnormal results of thyroid function studies
CPT/HCPCS: 36415; 80053; 84443